=== PATIENT | male | born 1965 | race Caucasian/White ===

== ENCOUNTER 2018-07-15 14:34 | Emergency (ER) | payer MEDICARE, MEDICAID, SELFPAY ==
[2018-07-15 14:37] VITALS: PULSE 90; RESP 16; TEMP 36.5; O2SAT 97
[2018-07-15 14:44] VITALS: BP 138/95
[2018-07-15] MEDS: predniSONE 20 MG TAB 60 MG PO (15:27)
--- NOTE | 2018-07-15 16:16 | ED.GENADUL_ITS ---
Discharge Plan Disposition Patient Disposition: HOME Condition: Fair Discharge Details Chief Complaint: Orthopedic Clinical Impression: Gout Primary Care Provider: Jesi Montana ED Provider: Cynthia Fuentes Home Meds and New Rx's Prescriptions: New prednisone 20 mg tablet 60 mg PO DAILY Qty: 12 RF: 0 Continued prochlorperazine maleate 5 MG tablet 1 - 2 tab PO Q8H PRN Qty: 90 RF: 0 losartan-hydrochlorothiazide 1 EACH tablet 1 ea PO DAILY Qty: 90 RF: 3 gabapentin 300 MG capsule 300 mg PO PRN Qty: 90 RF: 4 colchicine 0.6 MG capsule 0.6 mg PO TID Qty: 9 RF: 0 prednisone 20 MG tablet 60 mg PO DAILY Qty: 15 RF: 0 ranitidine HCl 150 MG tablet 150 mg PO BID Qty: 180 RF: 3 phenytoin 50 mg tablet,chewable 50 mg PO DAILY Qty: 90 RF: 3 nortriptyline 75 mg capsule 75 mg PO DAILY Qty: 90 RF: 3 phenytoin sodium extended 100 mg capsule 200 mg PO HS Qty: 180 RF: 3 Discharge Instructions Instructions: Gout (ED) Additional Instructions: Encourage rest, ice, elevation. Postoperative shoe and crutches while pain persists. Steroids as prescribed, your first dose given here, you will not need another dose until tomorrow. If you develop increased redness, warmth, fevers/chills, increased pain or other new/worsening symptoms please seek care urgently once again. Follow up with primary care next week to discuss recurrent episodes of gout. Referrals: Jesi Montana, [facility] [Primary Care Provider] - Medical Decision Making Patient 53-year-old male presenting today with chief complaint of left great toe pain. He reports that this pain can radiate into the forefoot. Reports that symptoms began approximately 2 days ago. Associates this with eating pepperoni pizza. Reports that this feels like gout he has had previously. I did review previous notes, patient was last seen here in January for similar episode. He reports that this is the same type of pain. He denies any fevers or chills. Has a focal area of erythema at the base of the left great toe, this is consistent what with what was seen previously. No spreading of the erythema. Patient appears nontender. Vital signs within normal limits. Patient had an allergy to anti-inflammatories and acetaminophen. Patient responded well to prednisone last time is requesting the same medication. Patient longer has the crutches and postoperative shoe he was discharged with last time. Will replace these. Encourage rest, ice, elevation. Advised that he follow-up with primary care to discuss recurrent episodes of gout. We discussed new/worsening symptoms, and the signs and symptoms of infection, and when to seek care urgently once again. Patient did have colchicine listed on his medications but reports he has never been on this medication, is not clear as he works for. Advised to discuss this further with his primary care physician. All his questions and concerns were addressed and he is in agreement this plan HPI General Mode of arrival: ambulatory . Date/Time Provider Initiated Documentation: 07/15/18 14:39 . Limitations to Documentation: no limitations . Information obtained by: patient and family . History of Present Illness 53 year old M presents to the emergency department with the chief complaint of Left foot pain, described as severe, Quality is described as burning and stabbing, and is localized to the left and lower extremity. Patient reports no radiation. Patient started experiencing this day(s) (2) and it has been constant. No relieving factors improve symptom(s), Movement worsens symptoms and Other factors that worsen symptoms (Pressure applied to the left foot) . Patient notes no other symptoms.; denies chest pain, cough, diaphoresis, fever/chills, loss of appetite, nausea/vomiting, rash and shortness of breath. Patient did receive the following treatments prior to arrival, none Related Data Home Medications Medication Instructions Recorded Confirmed prochlorperazine maleate 1 - 2 tab PO Q8H PRN #90 tab-cap 06/14/17 losartan-hydrochlorothiazide 1 ea PO DAILY #90 tab 07/20/17 gabapentin 300 mg PO PRN #90 tab-cap 12/15/17 colchicine 0.6 mg PO TID #9 tab-cap 01/19/18 prednisone 60 mg PO DAILY #15 tab-cap 02/10/18 ranitidine HCl 150 mg PO BID #180 tab-cap 03/02/18 phenytoin 50 mg chewable tablet 50 mg PO DAILY #90 tab 03/08/18 nortriptyline 75 mg capsule 75 mg PO DAILY #90 tab-cap 04/07/18 phenytoin sodium extended 100 mg 200 mg PO HS #180 cap 05/31/18 capsule prednisone 60 mg PO DAILY #12 tab 07/15/18 Previous Rx's Medication Instructions Recorded prochlorperazine maleate 1 - 2 tab PO Q8H PRN #90 tab-cap 06/14/17 losartan-hydrochlorothiazide 1 ea PO DAILY #90 tab 07/20/17 gabapentin 300 mg PO PRN #90 tab-cap 12/15/17 colchicine 0.6 mg PO TID #9 tab-cap 01/19/18 prednisone 60 mg PO DAILY #15 tab-cap 02/10/18 ranitidine HCl 150 mg PO BID #180 tab-cap 03/02/18 phenytoin 50 mg chewable tablet 50 mg PO DAILY #90 tab 03/08/18 nortriptyline 75 mg capsule 75 mg PO DAILY #90 tab-cap 04/07/18 phenytoin sodium extended 100 mg 200 mg PO HS #180 cap 05/31/18 capsule prednisone 60 mg PO DAILY #12 tab 07/15/18 Allergies Allergy/AdvReac Type Severity Reaction Status Date / Time chocolate flavor Allergy Intermediate Hives Unverified 07/15/18 14:40 aspirin Allergy Mild SKIN RASH Unverified 07/15/18 14:40 OR GI UPSET fluoxetine Allergy Unknown Skin Rash Unverified 07/15/18 14:40 ibuprofen Allergy Unknown Skin Rash Unverified 07/15/18 14:40 acetaminophen Allergy SKIN RASH Unverified 07/15/18 14:40 lisinopril AdvReac Intermediate cough Unverified 07/15/18 14:40 Review of Systems Constitutional Reports as per HPI, Denies chills, Denies fever(s), Denies headache(s) and Denies weakness ENT Denies headache(s) Cardiovascular Reports as per HPI Respiratory Reports as per HPI and Denies cough Musculoskeletal Reports as per HPI and Denies tingling Integumentary/Breasts Reports as per HPI, Denies rash and Denies wounds Neurologic Denies headache(s), Denies tingling and Denies weakness [facility] Medical History Alcohol abuse (09/05/05) Aspirin allergy (08/10/07) Hyperlipidemia (04/05/09) IgA nephropathy (04/03/08) Impulse control disorder, unspecified (10/02/04) Left leg weakness (08/14/09) Obesity (04/01/09) PTSD (post-traumatic stress disorder) (10/02/04) Seizures (01/22/05) Shortness of breath (04/01/09) Surgical History Cholecystectomy (09/24/15) Circumcision kidney biopsy left (~2007) Family History Mother Substance abuse Essential hypertension Heart disease Mental disorder Father No problems noted. Maternal Aunt Diabetes Sister No problems noted. Sister No problems noted. Sister No problems noted. Sister No problems noted. Sister No problems noted. Brother No problems noted. Brother No problems noted. Brother No problems noted. Social History Smoking/Tobacco Use Status: Former Tobacco Use Exam Const General: cooperative, healthy appearing, comfortable, no acute distress, well developed and well groomed Nutritional Appearance: average body habitus and well nourished Orientation: alert and awake Resp Effort & Inspection: normal respiratory effort, able to speak in complete sentences and no respiratory distress Cardio Rate: regular rate Rhythm: regular rhythm Skin General skin exam: erythema (Proximal left great toe) Neuro General: alert and awake Cognition: normal cognition Speech: speech normal Gait: normal gait Motor: muscle tone normal throughout Sensory Exam: no sensory deficits noted Extrem Left lower extremity: normal capillary refill, lower leg Details: normal to inspection; no tenderness and no localized swelling, ankle Details: normal to inspection and no edema; no tenderness and no swelling and foot Details: normal capillary refill, tenderness Location: of the dorsal foot Location: distally and medially, no edema, vascular exam Details: dorsalis pedis pulse present, posterior tibial pulse present and normal capillary refill and motor-sensory exam Details: two point discrimination normal; ROM of toes abnormal (Limited range of motion great toe), no unusual warmth, no abrasions, no lacerations, no ecchymosis and no crepitus; abnormal ROM (Limited secondary to pain) and joint enlargement noted (Swelling at the base of the left great toe) Psych Appearance: grossly normal and well kempt Mental Status: mental status grossly normal Speech and Movement: speech and movement normal
== END 2018-07-15 15:32 | disposition home or self-care (01) ==
LOC: ER 15:15
PROVIDERS: Emergency Provider Physician Assistant; PCP Nurse Practitioner
DX: M10.072 Idiopathic gout, left ankle and foot (principal)
CPT/HCPCS: 99283; E0114; J7512

== ENCOUNTER 2018-07-29 13:53 | Emergency (ER) | payer MEDICARE, MEDICAID, SELFPAY ==
[2018-07-29 13:55] VITALS: BP 157/98; PULSE 90; RESP 18; TEMP 36.7; O2SAT 98
--- NOTE | 2018-07-29 14:41 | DI.RAD_ITS ---
SYMPTOMS/DIAGNOSIS: LEFT CHEST WALL PAIN LEFT RIBS TO INCLUDE CHEST X-RAY: Comparison is 09/26/15. The heart size and pulmonary vasculature are within normal limits. There are increased lung markings in the left base. These are present on prior examinations and likely reflect scarring. No new infiltrates, effusions or pneumothoraces are identified. The ribs appear intact. Mild degenerative changes are seen in the spine. IMPRESSION: No acute pulmonary process. No evidence of a rib fracture.
[2018-07-29 15:06] VITALS: BP 126/85; PULSE 81; RESP 16; TEMP 36.9; O2SAT 97
[2018-07-29] MEDS: oxyCODONE 5 MG TAB PO (15:09)
[2018-07-29] MEDS: Lidocaine 5% Patch 1 PATCH TP (15:09)
[2018-07-29 16:22] VITALS: BP 151/90; PULSE 60; RESP 16; TEMP 37.1; O2SAT 94
--- NOTE | 2018-07-29 16:24 | W.ED.GENAD ---
Discharge Plan Disposition Patient Disposition: HOME Condition: Stable Discharge Details Chief Complaint: Chest/Rib Clinical Impression: Contusion of left chest wall, Head injury due to trauma Reason For Visit: SARAH Primary Care Provider: Jesi Montana ED Provider: Bong Lewis Home Meds and New Rx's Prescriptions: New lidocaine HCl 3 % cream 1 applic TP BID PRN (Reason: pain) Qty: 28.3 RF: 0 oxycodone 5 mg tablet 5 mg PO Q6H PRN (Reason: pain) Qty: 6 RF: 0 Continued prochlorperazine maleate 5 MG tablet 1 - 2 tab PO Q8H PRN Qty: 90 RF: 0 gabapentin 300 MG capsule 300 mg PO PRN Qty: 90 RF: 4 colchicine 0.6 MG capsule 0.6 mg PO TID Qty: 9 RF: 0 prednisone 20 MG tablet 60 mg PO DAILY Qty: 15 RF: 0 ranitidine HCl 150 MG tablet 150 mg PO BID Qty: 180 RF: 3 phenytoin 50 mg tablet,chewable 50 mg PO DAILY Qty: 90 RF: 3 nortriptyline 75 mg capsule 75 mg PO DAILY Qty: 90 RF: 3 phenytoin sodium extended 100 mg capsule 200 mg PO HS Qty: 180 RF: 3 losartan-hydrochlorothiazide 50-12.5 mg tablet 1 tab PO DAILY Qty: 90 RF: 3 prednisone 20 mg tablet 60 mg PO DAILY Qty: 12 RF: 0 Discharge Instructions Instructions: Head Injury (ED), Contusion in Adults (ED) Additional Instructions: Return to the emergency department for any difficulty breathing, shortness of breath, fever chills, or any new or worsening symptoms. Otherwise follow-up with your primary care provider as needed for reassessment Referrals: Jesi Montana, [facility] [Primary Care Provider] - (As needed for reassessment or if not improving over the next 2 weeks) Discharge Data Discharge Date/Time-TO BE ENTERED AT DEPARTURE: 07/29/18 16:39 Medical Decision Making Patient presenting the emergency department via EMS for left-sided chest and shoulder pain after fall pain. Patient states he slipped on the ice and hit his head. After this he rolled on his left shoulder and noticed some some pain and discomfort there as well. Patient denies any shortness of breath, loss of consciousness, neurological symptoms. Head is atraumatic with no neurological symptoms or findings noted. No cervical spinal tenderness patient has full range of motion of C-spine. Given [place] head CT rule patient does not need to require head CT imaging but patient may be observed for any worsening symptoms. Given significant amount of pain and discomfort to left chest wall plan to perform radiological imaging but patient does have range of motion appropriate for left upper extremity. Concern for possible rib fracture. Lung sounds are clear so doubt pneumothorax. Pending results patient given lidocaine patch and oxycodone. Patient does have allergy to ibuprofen and acetaminophen. Review of radiological imaging shows no acute findings noted. Patient was reassessed and has continued discomfort and pain but otherwise is stable. Patient was discharged with prescription for lidocaine cream and limited supply of oxycodone after review of drug database shows no worrisome findings for narcotic abuse. Patient was informed to use these sparingly and to apply ice and rest. Patient informed to return for new or significant worsening symptoms otherwise follow-up with his primary care provider if not improving over the next couple weeks. HPI General Mode of arrival: EMS. Date/Time Provider Initiated Documentation: 07/29/18 14:00. Limitations to Documentation: no limitations. Information obtained by: patient, EMS and RN notes reviewed. History of Present Illness 53 year old M presents to the emergency department with the chief complaint of fall headache and left chest wall pain, described as severe, with intensity rated at 9. Quality is described as sharp, and is localized to the chest and left. Patient started experiencing this minute(s) (30) and it has been constant. No relieving factors improve symptom(s), Patient did receive the following treatments prior to arrival, none Related Data Home Medications Medication Instructions Recorded Confirmed prochlorperazine maleate 1 - 2 tab PO Q8H PRN #90 tab-cap 06/14/17 gabapentin 300 mg PO PRN #90 tab-cap 12/15/17 colchicine 0.6 mg PO TID #9 tab-cap 01/19/18 prednisone 60 mg PO DAILY #15 tab-cap 02/10/18 ranitidine HCl 150 mg PO BID #180 tab-cap 03/02/18 phenytoin 50 mg chewable tablet 50 mg PO DAILY #90 tab 03/08/18 nortriptyline 75 mg capsule 75 mg PO DAILY #90 tab-cap 04/07/18 phenytoin sodium extended 100 mg 200 mg PO HS #180 cap 05/31/18 capsule prednisone 60 mg PO DAILY #12 tab 07/15/18 lidocaine HCl 1 applic TP BID PRN #28.3 gm 07/29/18 losartan 50 mg-hydrochlorothiazide 1 tab PO DAILY #90 tab 07/29/18 12.5 mg tablet oxycodone 5 mg PO Q6H PRN #6 tab 07/29/18 Previous Rx's Medication Instructions Recorded prochlorperazine maleate 1 - 2 tab PO Q8H PRN #90 tab-cap 06/14/17 gabapentin 300 mg PO PRN #90 tab-cap 12/15/17 colchicine 0.6 mg PO TID #9 tab-cap 01/19/18 prednisone 60 mg PO DAILY #15 tab-cap 02/10/18 ranitidine HCl 150 mg PO BID #180 tab-cap 03/02/18 phenytoin 50 mg chewable tablet 50 mg PO DAILY #90 tab 03/08/18 nortriptyline 75 mg capsule 75 mg PO DAILY #90 tab-cap 04/07/18 phenytoin sodium extended 100 mg 200 mg PO HS #180 cap 05/31/18 capsule prednisone 60 mg PO DAILY #12 tab 07/15/18 lidocaine HCl 1 applic TP BID PRN #28.3 gm 07/29/18 losartan 50 mg-hydrochlorothiazide 1 tab PO DAILY #90 tab 07/29/18 12.5 mg tablet oxycodone 5 mg PO Q6H PRN #6 tab 07/29/18 Allergies Allergy/AdvReac Type Severity Reaction Status Date / Time chocolate flavor Allergy Intermediate Hives Unverified 07/29/18 14:05 aspirin Allergy Mild SKIN RASH Unverified 07/29/18 14:05 OR GI UPSET fluoxetine Allergy Unknown Skin Rash Unverified 07/29/18 14:05 ibuprofen Allergy Unknown Skin Rash Unverified 07/29/18 14:05 acetaminophen Allergy SKIN RASH Unverified 07/29/18 14:05 lisinopril AdvReac Intermediate cough Unverified 07/29/18 14:05 General Stated Complaint: Chest/Rib NITZA: 3 Review of Systems Constitutional Denies frequent falls, Reports headache(s), Denies lethargy and Denies weakness Eyes Denies blurry vision and Denies loss of vision ENT Reports headache(s) Cardiovascular Denies syncope Respiratory Denies hemoptysis, Reports pain on inspiration, Denies stridor and Denies wheezing Gastrointestinal Denies nausea and Denies vomiting Neurologic Denies syncope, Denies frequent falls, Reports headache(s), Denies focal weakness, Denies loss of vision, Denies memory loss, Denies seizure-like activity and Denies weakness Psychiatric Denies memory loss Allergic/Immunologic Denies wheezing [facility] Medical History Alcohol abuse (09/05/05) Aspirin allergy (08/10/07) Hyperlipidemia (04/05/09) IgA nephropathy (04/03/08) Impulse control disorder, unspecified (10/02/04) Left leg weakness (08/14/09) Obesity (04/01/09) PTSD (post-traumatic stress disorder) (10/02/04) Seizures (01/22/05) Shortness of breath (04/01/09) Surgical History Cholecystectomy (09/24/15) Circumcision kidney biopsy left (~2007) Family History Mother Substance abuse Essential hypertension Heart disease Mental disorder Father No problems noted. Maternal Aunt Diabetes Sister No problems noted. Sister No problems noted. Sister No problems noted. Sister No problems noted. Sister No problems noted. Brother No problems noted. Brother No problems noted. Brother No problems noted. Social History Smoking/Tobacco Use Status: Former Tobacco Use Exam Const General: cooperative, not diaphoretic and not ill appearing Nutritional Appearance: average body habitus Orientation: alert, awake and oriented x3 Limitations: mental status not altered [facility] Head: normal to inspection, no palpable skull fracture, normocephalic, atraumatic, no Nicole's sign, no palpable skull fracture, no raccoon eyes and no scalp tenderness Ears: hearing grossly normal bilaterally, external ears normal and TM's normal bilaterally General nose exam: external nose normal Neck Neck: normal visual inspection, full ROM, trachea midline, supple and no anterior neck swelling Thyroid: thyroid normal Carotids: normal carotid upstroke and no bruits Chest Chest: tenderness (difuse left chest wall) costochondral junction Resp Effort & Inspection: normal respiratory effort and able to speak in complete sentences Auscultation: clear to auscultation bilaterally Cardio Jugular venous pressure: no JVD Palpation: normal PMI Rate: regular rate Rhythm: regular rhythm Heart Sounds: S1 normal, S2 normal, no click, no gallops, no murmurs and no rubs Bruits: no abdominal aortic bruits and no carotid bruits Pulses: radial pulses present bilaterally 2+ GI Inspection: normal to inspection Palpation: soft, no aortic enlargement, no pulsatile masses and nontender Auscultation: normal bowel sounds Back/Spine/Pelvis Cervical Spine: cervical spinal tenderness Thoracic/Lumbar Spine: thoracic spinal tenderness and lumbar spinal tenderness Skin General skin exam: no rashes or lesions noted Neuro General: alert, awake, oriented x3, gait normal, tone normal, moves all extremities, no focal motor deficits, CN's II-XI intact bilaterally and not confused Course Vital Signs Temperature 36.7 C 07/29/18 13:55 Pulse 90 07/29/18 13:55 Respiratory Rate 18 07/29/18 13:55 Blood Pressure 157/98 H 07/29/18 13:55 Pulse Oximetry 98 07/29/18 13:55 Temperature 37.1 C 07/29/18 16:22 Temperature Source Skin 07/29/18 16:22 Pulse 60 07/29/18 16:22 Respiratory Rate 16 07/29/18 16:22 Respiratory Effort Non-Labored 07/29/18 13:58 Respiratory Depth Shallow 07/29/18 14:01 Blood Pressure 151/90 H 07/29/18 16:22 Blood Pressure Position Supine 07/29/18 13:55 Pulse Oximetry 94 L 07/29/18 16:22 Oxygen Delivery Method Room Air 07/29/18 16:22 Oxygen Flow Rate 0 07/29/18 16:22 Pain Level 9 07/29/18 16:22
[2018-07-29 16:33] VITALS: BP 151/90; PULSE 60; RESP 16; TEMP 37.1; O2SAT 94
== END 2018-07-29 16:39 | disposition home or self-care (01) ==
PROVIDERS: Emergency Provider Nurse Practitioner Family; PCP Nurse Practitioner
DX: S20.211A Contusion of right front wall of thorax, initial encounter (principal); S09.90XA Unspecified injury of head, initial encounter; W00.0XXA Fall on same level due to ice and snow, initial encounter
CPT/HCPCS: 99283; 71046; 71100

== ENCOUNTER 2018-08-09 15:10 | Emergency (ER) | payer MEDICARE, MEDICAID, SELFPAY ==
[2018-08-09 15:18] VITALS: BP 145/87; PULSE 88; RESP 16; TEMP 36.5
--- NOTE | 2018-08-09 15:28 | DI.RAD_ITS ---
SYMPTOMS/DIAGNOSIS: FALL, TRAUMA, LT ANTERIOR CHEST WALL PAIN LEFT SHOULDER: There is mild spurring at the AC joint and glenoid. The humeral head appears normally positioned. No fracture or lytic or blastic bony lesions are seen. No tendon or joint space calcifications are identified. IMPRESSION: Mild degenerative changes. PA AND LATERAL CHEST: Comparison is made with [id number]. The lungs are suboptimally inflated on both views. There are linear densities at the lung bases representing either atelectasis or scarring. No focal infiltrate, effusion or pulmonary edema is seen. Cholecystectomy clips are noted in the right upper quadrant. IMPRESSION: Mild linear basilar atelectasis vs scarring.
[2018-08-09] MEDS: MORPHine 10 MG/ML VIAL 6 MG IM (15:45)
[2018-08-09] MEDS: Lidocaine 5% Patch 1 PATCH TP (15:47)
--- NOTE | 2018-08-09 16:04 | ED.GENADUL_ITS ---
Discharge Plan Disposition Patient Disposition: HOME Condition: Stable Discharge Details Chief Complaint: Chest/Rib Clinical Impression: Contusion of left shoulder, Contusion of left chest wall Primary Care Provider: Jesi Montana ED Provider: Maximilian Perdomo Home Meds and New Rx's Prescriptions: New cyclobenzaprine 10 mg tablet 10 mg PO TID PRN (Reason: pain) Qty: 30 RF: 0 Continued prochlorperazine maleate 5 MG tablet 1 - 2 tab PO Q8H PRN Qty: 90 RF: 0 colchicine 0.6 MG capsule 0.6 mg PO TID Qty: 9 RF: 0 ranitidine HCl 150 MG tablet 150 mg PO BID Qty: 180 RF: 3 phenytoin 50 mg tablet,chewable 50 mg PO DAILY Qty: 90 RF: 3 nortriptyline 75 mg capsule 75 mg PO DAILY Qty: 90 RF: 3 phenytoin sodium extended 100 mg capsule 200 mg PO HS Qty: 180 RF: 3 losartan-hydrochlorothiazide 50-12.5 mg tablet 1 tab PO DAILY Qty: 90 RF: 3 lidocaine HCl 3 % cream 1 applic TP BID PRN (Reason: pain) Qty: 28.3 RF: 0 gabapentin 300 MG capsule 300 mg PO PRN Qty: 90 RF: 4 Discharge Instructions Additional Instructions: Your xrays did not show any broken bones Follow up with your primary care provider as scheduled this month if you have new symptoms such as chest pressure, abdominal pain or fevers, or feel significantly worse return to the emergency department for reevaluation Discharge Data Discharge Date/Time-TO BE ENTERED AT DEPARTURE: 08/09/18 17:13 Medical Decision Making <Bong Lewis NP - Last Filed: 08/11/18 19:51> Patient presenting the emergency department for chief complaint of continued chest wall pain and left shoulder pain. Patient states approximately 12 days ago he fell and slipped on the ice. I initially saw the patient at that time and radiological imaging of the chest wall/ribs was performed and no acute findings were noted. Patient placed on oxycodone and lidocaine patches which she states is not working. Patient denies any new or other injury or trauma but continued chest wall pain that is severe in the left shoulder pain. Physical exam shows diffuse tenderness to palpation of left anterior chest wall and left shoulder without pinpoint tenderness, over exaggerated pain response with even slight movement of the left upper extremity. High suspicion of this being contusion of left chest wall and shoulder. Patient has allergies to ibuprofen acetaminophen so patient given IM morphine and lidocaine patch ordered along with plain film imaging of the chest and shoulder to make sure there are no acute changes. Pending results patient transferred to Dr. Perdomo for review of results and disposition. HPI <Bong Lewis NP - Last Filed: 08/11/18 19:51> General Mode of arrival: ambulatory . Date/Time Provider Initiated Documentation: 08/09/18 15:13 . Limitations to Documentation: no limitations . Information obtained by: patient and RN notes reviewed . History of Present Illness 53 year old M presents to the emergency department with the chief complaint of Left chest wall pain, shoulder pain, described as severe, with intensity rated at 10. Quality is described as sharp, and is localized to the chest, left and upper extremity. Patient started experiencing this day(s) (12) and it has been constant. No relieving factors improve symptom(s), Movement worsens symptoms . Patient notes no other symptoms.. Patient did receive the following treatments prior to arrival, none Related Data Home Medications Medication Instructions Recorded Confirmed prochlorperazine maleate 1 - 2 tab PO Q8H PRN #90 tab-cap 06/14/17 08/09/18 colchicine 0.6 mg PO TID #9 tab-cap 01/19/18 08/09/18 ranitidine HCl 150 mg PO BID #180 tab-cap 03/02/18 08/09/18 phenytoin 50 mg chewable tablet 50 mg PO DAILY #90 tab 03/08/18 08/09/18 nortriptyline 75 mg capsule 75 mg PO DAILY #90 tab-cap 04/07/18 08/09/18 phenytoin sodium extended 100 mg 200 mg PO HS #180 cap 05/31/18 08/09/18 capsule lidocaine HCl 1 applic TP BID PRN #28.3 gm 07/29/18 08/09/18 losartan 50 mg-hydrochlorothiazide 1 tab PO DAILY #90 tab 07/29/18 08/09/18 12.5 mg tablet cyclobenzaprine 10 mg PO TID PRN #30 tab 08/09/18 gabapentin 300 mg PO PRN #90 tab-cap 08/09/18 Previous Rx's Medication Instructions Recorded prochlorperazine maleate 1 - 2 tab PO Q8H PRN #90 tab-cap 06/14/17 colchicine 0.6 mg PO TID #9 tab-cap 01/19/18 ranitidine HCl 150 mg PO BID #180 tab-cap 03/02/18 phenytoin 50 mg chewable tablet 50 mg PO DAILY #90 tab 03/08/18 nortriptyline 75 mg capsule 75 mg PO DAILY #90 tab-cap 04/07/18 phenytoin sodium extended 100 mg 200 mg PO HS #180 cap 05/31/18 capsule lidocaine HCl 1 applic TP BID PRN #28.3 gm 07/29/18 losartan 50 mg-hydrochlorothiazide 1 tab PO DAILY #90 tab 07/29/18 12.5 mg tablet cyclobenzaprine 10 mg PO TID PRN #30 tab 08/09/18 gabapentin 300 mg PO PRN #90 tab-cap 08/09/18 Allergies Allergy/AdvReac Type Severity Reaction Status Date / Time chocolate flavor Allergy Intermediate Hives Unverified 08/09/18 15:23 aspirin Allergy Mild SKIN RASH Unverified 08/09/18 15:23 OR GI UPSET fluoxetine Allergy Unknown Skin Rash Unverified 08/09/18 15:23 ibuprofen Allergy Unknown Skin Rash Unverified 08/09/18 15:23 acetaminophen Allergy SKIN RASH Unverified 08/09/18 15:23 lisinopril AdvReac Intermediate cough Unverified 08/09/18 15:23 General Stated Complaint: GenMedical NITZA: 3 Review of Systems <Bong Lewis NP - Last Filed: 08/11/18 19:51> Constitutional Denies chills, Denies daytime sleepiness and Denies fever(s) Eyes Denies loss of vision Cardiovascular Reports chest pain (wall pain) Respiratory Reports pain on inspiration Gastrointestinal Denies abdominal pain, Denies diarrhea, Denies nausea and Denies vomiting Musculoskeletal Reports as per HPI Neurologic Denies behavioral changes, Denies focal weakness and Denies loss of vision Psychiatric Denies behavioral changes PFSH <Bong Lewis NP - Last Filed: 08/11/18 19:51> Social History Smoking and Tabacco status: Former Tobacco Use Exam <Bong Lewis NP - Last Filed: 08/11/18 19:51> Const General: cooperative and no acute distress Orientation: alert, awake and oriented x3 HENMT Head: normal to inspection, normocephalic and atraumatic Chest Chest: normal inspection of the chest, no crepitus and other (Left anterior chest wall diffuse tenderness) Resp Effort & Inspection: normal respiratory effort and able to speak in complete sentences Auscultation: clear to auscultation bilaterally Cardio Rate: regular rate Rhythm: regular rhythm Heart Sounds: S1 normal, S2 normal, no click, no gallops, no murmurs and no rubs Back/Spine/Pelvis Thoracic/Lumbar Spine: No thoracic spinal tenderness Extrem Left upper extremity: shoulder/upper arm Details: tenderness Location: of the proximal humerus and over the subacromial bursa, axillary nerve sensory function normal and abnormal ROM Details: pain with active ROM (any movement); no ecchymosis and no deformity Course <Bong Lewis NP - Last Filed: 08/11/18 19:51> Vital Signs Temperature 36.5 C 08/09/18 15:18 Pulse 88 08/09/18 15:18 Respiratory Rate 16 08/09/18 15:18 Blood Pressure 145/87 H 08/09/18 15:18 Temperature 36.5 C 08/09/18 15:18 Temperature Source Skin 08/09/18 15:18 Pulse 88 08/09/18 15:18 Respiratory Rate 16 08/09/18 15:18 Respiratory Effort Non-Labored 08/09/18 15:18 Blood Pressure 145/87 H 08/09/18 15:18 Blood Pressure Position Sitting 08/09/18 15:18 Oxygen Delivery Method Room Air 08/09/18 15:18 Oxygen Flow Rate 0 08/09/18 15:18 Pain Level 10 08/09/18 15:45 Sign Out <Bong Lewis NP - Last Filed: 08/11/18 19:51> Sign Out Data: Sign Out Comment: Care of patient signed over to Dr. Perdomo pending review of radiological imaging and disposition for concern of chest wall contusion Last updated by Bong Lewis NP at 08/09/18 16:05 Post-Handoff Eval: xrays negative on my read. he states he slipped on ice in July and has continued left sided chest pain in mid axillary line and left shoulder pain. No erythema, crepitus, warmth and has good rom of the shoulder so doubt septic joint. Does have some djd of the joint which could be causing his pain. HAs reproducible pain in the left chest and started after the fall so do not feel w/u for acs, pe or dissection indciated. Advised f/u with pcp and return precautions given
--- NOTE | 2018-08-09 16:38 | DI.VRAD_ITS ---
EXAM: XR Left Shoulder Complete, 2 or More Views EXAM DATE/TIME: 08/09/2018 3:29 PM CLINICAL HISTORY: 53 years old, male; Pain; Shoulder; Left TECHNIQUE: XR Left shoulder complete 2 or more views. COMPARISON: No relevant prior studies available. FINDINGS: There is mild degenerative arthrosis of the left acromioclavicular joint. Glenohumeral joint is unremarkable. No fracture or dislocation is identified. The left shoulder soft tissues are unremarkable. IMPRESSION: Mild osteoarthritis of the left acromioclavicular joint. Dictated and Authenticated by: Moise Mayers MD. Ordering:VLAD Woody MD
--- NOTE | 2018-08-09 16:39 | DI.VRAD_ITS ---
EXAM: XR Chest, 2 Views EXAM DATE/TIME: 08/09/2018 3:29 PM CLINICAL HISTORY: 53 years old, male; Pain; Chest wall pain; Patient HX: Left anterior chest wall pain TECHNIQUE: XR of the chest, 2 views. COMPARISON: CR XR ribs LT w PA lat chest 07/29/2018 3:06 PM FINDINGS: There is minimal linear atelectasis and/or scarring lung bases. No pulmonary consolidation. No pleural effusion or pneumothorax. The cardiomediastinal silhouette and pulmonary vasculature are within normal limits. No rib fracture or focal rib lesion is seen. The patient is status post cholecystectomy. IMPRESSION: Minimal linear atelectasis and/or scarring the lung bases. Dictated and Authenticated by: Moise Mayers MD. Ordering:VLAD Woody MD
== END 2018-08-09 17:13 | disposition home or self-care (01) ==
PROVIDERS: Emergency Provider Emergency Medicine; PCP Nurse Practitioner
DX: S40.012A Contusion of left shoulder, initial encounter (principal); S20.212A Contusion of left front wall of thorax, initial encounter; W00.0XXA Fall on same level due to ice and snow, initial encounter; R29.898 Other symptoms and signs involving the musculoskeletal system
CPT/HCPCS: 96372; 99284; 71046; 73030; J2270

== ENCOUNTER 2018-08-29 00:31 | Outpatient (CLI) | payer MEDICARE, MEDICAID, SELFPAY ==
--- NOTE | 2018-08-29 14:13 | DI.CT_ITS ---
SYMPTOM/DIAGNOSIS: CONTINUED PAIN, S/P FALL, R07.9, W19.XXXA CHEST CT: Comparison is made with chest xray dated 08/09/18. A noncontrast exam was performed. The exam is limited by respiratory motion. There is no evidence of pneumothorax, pleural or pericardial effusion. No infiltrates are seen. No pulmonary nodules or adenopathy is identified. There are nondisplaced subacute fractures of the left fifth, sixth and seventh ribs posterolaterally and fractures anterolateral. No right sided rib fractures or thoracic spine fractures are seen. The visualized portions of the upper abdominal organs appear intact. IMPRESSION: The exam is mildly limited by patient motion. Left sided sub acute rib fractures are identified. There is no evidence of pneumothorax or pulmonary contusion.
[2018-08-29 14:59] LABS: HCT 41.6 % (40.0-50.0); HGB 14.2 g/dL (13.5-17.5); Mean Corp. HGB Concentration 34.1 g/dL (32.0-36.0); Mean Corpuscular Hemoglobin 31.3 pg (27.0-33.0); Mean Corpuscular Volume 91.6 fL (80-95); Mean Platelet Volume 8.7 fL (8.0-11.0); Platelet Count 268 x1000/uL (130-400); RBC 4.54 m/cumm (4.50-6.00); RBC Distribution Width 13.4 % (11.8-14.1); White Blood Cell Count 7.58 k/cumm (4.4-10.8)
[2018-08-29 15:03] LABS: Bilirubin Negative (Negative); Blood Moderate (Negative); Clarity Clear; Glucose Negative (Negative); Ketones Negative (Negative); Leukocyte Esterase Negative (Negative); Nitrite Negative (Negative); Specific Gravity 1.015 (1.005-1.025); Urobilinogen 0.2 EU/dL (Up TO 0.2)
[2018-08-29 15:17] LABS: Epithelial Cells Few HPF (Negative); WBC 0-2 HPF (0-5)
[2018-08-29 15:18] LABS: Bacteria Rare HPF (Negative); C & S Indicated? No; Casts Negative LPF (Negative); Crystals Negative HPF (Negative); Mucus Trace (Negative)
[2018-08-29 15:44] LABS: PHENYTOIN (DILANTIN) 11.1 ug/mL (10.0-20.0)
[2018-08-29 16:19] LABS: ALT 23 U/L (12-78); AST 15 U/L (15-37); Albumin 3.6 g/dL (3.4-5.0); Alkaline Phosphatase 154 U/L (46-116); Anion Gap 6.5 mmol/L (3-11); BUN 23 mg/dL (7-18); Bilirubin, Total 0.3 mg/dL (0.2-1.0); CO2 29.5 mmol/L (21.0-32.0); CREATININE 1.58 mg/dL (0.70-1.30); Calcium 9.2 mg/dL (8.5-10.1); Chloride 104 mmol/L (98-107); Cholesterol 275 mg/dL (50-200); Estimated GFR 46.29 (mL/min/1.73m2); Glucose 88 mg/dL (70-100); HDL Cholesterol 53 mg/dL (40-60); LDL CHOLESTEROL 173 mg/dL (<100); Potassium 4.5 mmol/L (3.5-5.1); Sodium 140 mmol/L (136-145); Total Protein 7.7 g/dL (6.4-8.2); Triglyceride 220 mg/dL (30-150)
== END 2018-08-29 00:51 ==
PROVIDERS: PCP Nurse Practitioner; Visit Provider Nurse Practitioner
DX: R07.9 Chest pain, unspecified (principal); S22.42XA Multiple fractures of ribs, left side, initial encounter for closed fracture; E78.5 Hyperlipidemia, unspecified; I12.9 Hypertensive chronic kidney disease with stage 1 through stage 4 chronic kidney disease, or unspecified chronic kidney disease; G40.909 Epilepsy, unspecified, not intractable, without status epilepticus; Z51.81 Encounter for therapeutic drug level monitoring; E66.9 Obesity, unspecified; W19.XXXA Unspecified fall, initial encounter
CPT/HCPCS: 36415; 71250; 80053; 80061; 83721; 85027; 80185; 81003; 81015

== ENCOUNTER 2018-12-06 12:44 | Outpatient (CLI) | payer MEDICARE, MEDICAID, SELFPAY ==
[2018-12-06 14:22] LABS: ALT 34 U/L (12-78); AST 19 U/L (15-37); Albumin 3.5 g/dL (3.4-5.0); Alkaline Phosphatase 117 U/L (46-116); Anion Gap 9.9 mmol/L (3-11); BUN 21 mg/dL (7-18); Bilirubin, Total 0.2 mg/dL (0.2-1.0); CO2 27.1 mmol/L (21.0-32.0); CREATININE 1.36 mg/dL (0.70-1.30); Calculated LDL 102; Chloride 104 mmol/L (98-107); Cholesterol 177 mg/dL (50-200); Estimated GFR 55.03 (mL/min/1.73m2); Glucose 89 mg/dL (70-100); HDL Cholesterol 52 mg/dL (40-60); Potassium 4.2 mmol/L (3.5-5.1); Sodium 141 mmol/L (136-145); Total Protein 7.3 g/dL (6.4-8.2); Triglyceride 119 mg/dL (30-150)
== END 2018-12-06 13:04 ==
PROVIDERS: PCP Nurse Practitioner; Visit Provider Nurse Practitioner
DX: E78.5 Hyperlipidemia, unspecified (principal)
CPT/HCPCS: 36415; 80053; 80061; 83721

== ENCOUNTER 2019-02-14 09:01 | Emergency (ER) | payer MEDICARE, MEDICAID, SELFPAY ==
[2019-02-14 09:14] VITALS: BP 131/83; PULSE 82; RESP 16; TEMP 36.6; O2SAT 92
--- NOTE | 2019-02-14 09:27 | W.ED.GENAD ---
Discharge Plan Disposition Patient Disposition: HOME Condition: Stable Discharge Details Chief Complaint: Orthopedic Clinical Impression: Plantar fasciitis of left foot Primary Care Provider: Jesi Montana ED Provider: Maximilian Perdomo Home Meds and New Rx's Prescriptions: New gabapentin 100 mg capsule 100 mg PO TID Qty: 30 RF: 0 lidocaine 5 % adhesive patch,medicated 1 patch TP DAILY Qty: 30 RF: 0 No Action atorvastatin 20 mg tablet 20 mg PO QHS Qty: 90 RF: 3 losartan-hydrochlorothiazide 50-12.5 mg tablet 2 tab PO DAILY Qty: 180 RF: 3 ranitidine HCl 150 MG tablet 150 mg PO BID Qty: 180 RF: 3 phenytoin 50 mg tablet,chewable 50 mg PO DAILY Qty: 90 RF: 3 nortriptyline 75 mg capsule 75 mg PO DAILY Qty: 90 RF: 3 phenytoin sodium extended 100 mg capsule 200 mg PO HS Qty: 180 RF: 3 gabapentin 300 mg capsule 600 mg PO BID Qty: 120 RF: 6 Discharge Instructions Instructions: Plantar Fasciitis Exercises (GEN), Plantar Fasciitis (ED) Additional Instructions: follow up with your primary care provider within 1-2 weeks if you have new symptoms such as fevers or feel more ill return to the emergency department Medical Decision Making 54 yo male comes in with chief complaint of left heal pain since yesterday and denies any trauma or falls. no fevers, chills, or rashes. He has full rom of the ankle without swelling and pain pain with palpation under the left calcaneus and also the posterior portion. no warmth, ertyehma, or swelling. Suspect fascitis but will xray to eval for possible bone abnormalities such as spurs xray does have evidence of acute/chronic inflmmatory changes of distal achilles tendon per Dr. Haynes which would fit with fascititis. Still no redness or warmth so doubt cellulitis or nec fasc. Will prescribe lidocaine patch and given nsaid allergy will also start gabapentin, advised f/u with pcp Differential Diagnosis plantar fascitis, bursitis Imaging Data Radiologic Study: Attestation: I personally reviewed and interpreted this imaging study as follows: Imaging: X-Ray Radiologist's impression: per Dr. Haynes no acute fx/dislocation but does have some inflammation around the achilles tendon distally HPI General Mode of arrival: ambulatory. Date/Time Provider Initiated Documentation: 02/14/19 09:06. Limitations to Documentation: no limitations. Information obtained by: patient. History of Present Illness 54 year old M presents to the emergency department with the chief complaint of left heal pain, described as moderate, Quality is described as aching, and is localized to the left and lower extremity. Patient started experiencing this day(s) (1) and it has been constant. No relieving factors improve symptom(s), No exacerbating factors reported . Patient did receive the following treatments prior to arrival, none Related Data Home Medications Medication Instructions Recorded Confirmed ranitidine HCl 150 mg PO BID #180 tab-cap 03/02/18 12/06/18 phenytoin 50 mg chewable tablet 50 mg PO DAILY #90 tab 03/08/18 12/06/18 nortriptyline 75 mg capsule 75 mg PO DAILY #90 tab-cap 04/07/18 12/06/18 phenytoin sodium extended 100 mg 200 mg PO HS #180 cap 05/31/18 12/06/18 capsule atorvastatin 20 mg tablet 20 mg PO QHS #90 tab 09/05/18 12/06/18 gabapentin 300 mg capsule 600 mg PO BID #120 tab-cap 11/29/18 12/06/18 losartan 50 mg-hydrochlorothiazide 2 tab PO DAILY #180 tab 01/17/19 01/17/19 12.5 mg tablet gabapentin 100 mg PO TID #30 cap 02/14/19 lidocaine 1 patch TP DAILY #30 each 02/14/19 Previous Rx's Medication Instructions Recorded ranitidine HCl 150 mg PO BID #180 tab-cap 03/02/18 phenytoin 50 mg chewable tablet 50 mg PO DAILY #90 tab 03/08/18 nortriptyline 75 mg capsule 75 mg PO DAILY #90 tab-cap 04/07/18 phenytoin sodium extended 100 mg 200 mg PO HS #180 cap 05/31/18 capsule atorvastatin 20 mg tablet 20 mg PO QHS #90 tab 09/05/18 gabapentin 300 mg capsule 600 mg PO BID #120 tab-cap 11/29/18 losartan 50 mg-hydrochlorothiazide 2 tab PO DAILY #180 tab 01/17/19 12.5 mg tablet gabapentin 100 mg PO TID #30 cap 02/14/19 lidocaine 1 patch TP DAILY #30 each 02/14/19 Allergies Allergy/AdvReac Type Severity Reaction Status Date / Time chocolate flavor Allergy Intermediate Hives Verified 01/17/19 13:43 aspirin Allergy Mild SKIN RASH Verified 01/17/19 13:43 OR GI UPSET fluoxetine Allergy Unknown Skin Rash Verified 01/17/19 13:43 ibuprofen Allergy Unknown Skin Rash Verified 01/17/19 13:43 acetaminophen Allergy SKIN RASH Verified 01/17/19 13:43 Opioids - Morphine Analogues AdvReac Severe vomiting Verified 01/17/19 13:43 lisinopril AdvReac Intermediate cough Verified 01/17/19 13:43 General Stated Complaint: Orthopedic NITZA: 4 Review of Systems Review of Systems All systems reviewed & are unremarkable except as noted in HPI and below Constitutional Denies chills, Denies fever(s) and Denies weakness Cardiovascular Denies chest pain and Denies dyspnea Respiratory Denies cough and Denies dyspnea Gastrointestinal Denies abdominal pain, Denies nausea and Denies vomiting Neurologic Denies weakness [facility] Medical History (Updated 01/17/19 @ 13:50 by Jesi Montana NP) Alcohol abuse (09/05/05) Aspirin allergy (08/10/07) Hyperlipidemia (04/05/09) Hypertension (Chronic) IgA nephropathy (04/03/08) Impulse control disorder, unspecified (10/02/04) Left leg weakness (08/14/09) Obesity (04/01/09) PTSD (post-traumatic stress disorder) (10/02/04) Seizures (01/22/05) Shortness of breath (04/01/09) Surgical History Cholecystectomy (09/24/15) Circumcision kidney biopsy left (~2007) Social History (Updated 08/15/18 @ 13:37 by Dayanara Tobin RN) Smoking/Tobacco Use Status: Former Tobacco Use Second Hand Exposure: Yes (girlfriend smokes indoors.) Alcohol Intake: never Drug use: Never Substance use type: does not use Household members: significant other Housing: apartment Pets and animals: Yes (3 cats) Pets and animals: cat(s) Seatbelt use: always Working smoke detector in home: Yes Fire extinguisher in home: Yes Carbon monox detector in home: Yes Firearms in home: No Do you feel safe at home: Yes Do you feel safe in your relationship?: Yes Exam Const General: no acute distress Orientation: alert [facility] Head: normal to inspection Ears: external ears normal General nose exam: external nose normal Mouth: moist mucous membranes Eyes General: appearance normal, both eyes and all related structures Neck Neck: normal visual inspection Resp Effort & Inspection: normal respiratory effort and able to speak in complete sentences Cardio Rate: regular rate Skin General skin exam: no rashes or lesions noted Neuro General: alert and oriented x3 Extrem General: normal to inspection Psych Mental Status: mental status grossly normal Course Vital Signs Temperature 36.6 C 02/14/19 09:14 Pulse 82 02/14/19 09:14 Respiratory Rate 16 02/14/19 09:14 Blood Pressure 131/83 02/14/19 09:14 Pulse Oximetry 92 L 02/14/19 09:14 Temperature 36.6 C 02/14/19 09:14 Temperature Source Skin 02/14/19 09:14 Pulse 82 02/14/19 09:14 Respiratory Rate 16 02/14/19 09:14 Blood Pressure 131/83 02/14/19 09:14 Blood Pressure Position Sitting 02/14/19 09:14 Pulse Oximetry 92 L 02/14/19 09:14 Oxygen Delivery Method Room Air 02/14/19 09:14 Oxygen Flow Rate 0 02/14/19 09:14 Pain Level 10 02/14/19 09:14
--- NOTE | 2019-02-14 09:56 | DI.RAD_ITS ---
SYMPTOM/DIAGNOSIS: LEFT CALCANEUS PAIN LEFT ANKLE: 02/14 Three views were obtained. There is calcific or ossific material in the soft tissues adjacent to Achilles insertion on the calcaneus. No other bony or soft tissue abnormality seen.
[2019-02-14] MEDS: Lidocaine 5% Patch 1 PATCH TP (10:00)
[2019-02-14 10:39] VITALS: BP 131/83; PULSE 82; RESP 16; TEMP 36.6; O2SAT 96
== END 2019-02-14 10:24 | disposition home or self-care (01) ==
LOC: ER 10:16
PROVIDERS: Emergency Provider Emergency Medicine; PCP Nurse Practitioner
DX: M72.2 Plantar fascial fibromatosis (principal); I10 Essential (primary) hypertension
CPT/HCPCS: 99283; 73610; E0114

== ENCOUNTER → 2019-04-10 12:55 | Outpatient (BNVA) | payer MEDICARE, MEDICAID, SELFPAY | PROVIDERS: PCP Nurse Practitioner; Referring Provider Nurse Practitioner; Visit Provider Psychiatry & Neurology Neurology | DX: G40.109 Localization-related (focal) (partial) symptomatic epilepsy and epileptic syndromes with simple partial seizures, not intractable, without status epilepticus (principal); M24.822 Other specific joint derangements of left elbow, not elsewhere classified; M79.605 Pain in left leg; I12.9 Hypertensive chronic kidney disease with stage 1 through stage 4 chronic kidney disease, or unspecified chronic kidney disease; N18.9 Chronic kidney disease, unspecified | CPT/HCPCS: 99214 ==

== ENCOUNTER 2019-04-27 13:46 | Emergency (ER) | payer MEDICARE, MEDICAID, SELFPAY ==
[2019-04-27 13:48] VITALS: BP 117/87; PULSE 86; RESP 18; TEMP 36.7; O2SAT 96
--- NOTE | 2019-04-27 13:58 | ED.GENADUL_ITS ---
Discharge Plan Disposition Patient Disposition: HOME Condition: Stable Discharge Details Chief Complaint: RespSymp Clinical Impression: Cough Primary Care Provider: Jesi Montana ED Provider: Maximilian Perdomo Home Meds and New Rx's Prescriptions: New doxycycline hyclate 100 mg tablet 100 mg PO BID Qty: 14 RF: 0 Continued atorvastatin 20 mg tablet 20 mg PO QHS Qty: 90 RF: 3 phenytoin sodium extended 100 mg capsule 200 mg PO HS Qty: 180 RF: 3 phenytoin 50 mg tablet,chewable 50 mg PO DAILY Qty: 90 RF: 3 losartan-hydrochlorothiazide 50-12.5 mg tablet 2 tab PO DAILY Qty: 180 RF: 3 gabapentin 300 mg capsule 600 mg PO BID Qty: 120 RF: 6 ranitidine HCl 150 mg tablet 150 mg PO BID Qty: 180 RF: 3 nortriptyline 75 mg capsule 75 mg PO DAILY Qty: 90 RF: 3 Discharge Instructions Instructions: Acute Cough (ED) Additional Instructions: if not better within a week follow up with your primary care provider if you feel more ill or have worsening shortness of breath return to the emergency department Medical Decision Making 54 yo male comes in with 3 days of productive cough with no fevers. Sttaes the cough is preventing him from sleeping. He denies chest pain/pressure, recent travel or chills. He has clear lungs on exam and appears well systemically. Suspect bronchitis vs uri but will obtian cxr to eval for pna. His symptoms seem infectious and has no chest pain/pressure so doubt entities such as acs or PE at this time. xray unremarkable on my read but given his symptoms will cover for early CAp with doxy. advised f/u with pcp and return precautions given Differential Diagnosis Differential Diagnosis: bronchitis, pneumonia, uri Imaging Data Radiologic Study: Attestation: I personally reviewed and interpreted this imaging study as follows: Imaging: X-Ray My impression: no acute findings HPI General Mode of arrival: ambulatory . Date/Time Provider Initiated Documentation: 04/27/19 13:47 . Limitations to Documentation: no limitations . Information obtained by: patient . History of Present Illness 54 year old M presents to the emergency department with the chief complaint of cough, described as moderate, Quality is described as aching, Patient started experiencing this day(s) (3) and it has been constant. No relieving factors improve symptom(s), No exacerbating factors reported . Patient did receive the following treatments prior to arrival, none Related Data Home Medications Medication Instructions Recorded Confirmed atorvastatin 20 mg tablet 20 mg PO QHS #90 tab 09/05/18 04/27/19 gabapentin 300 mg capsule 600 mg PO BID #120 tab-cap 11/29/18 04/27/19 losartan 50 mg-hydrochlorothiazide 2 tab PO DAILY #180 tab 01/17/19 04/27/19 12.5 mg tablet ranitidine HCl 150 mg tablet 150 mg PO BID #180 tab-cap 03/03/19 04/27/19 nortriptyline 75 mg capsule 75 mg PO DAILY #90 tab-cap 04/03/19 04/27/19 phenytoin 50 mg chewable tablet 50 mg PO DAILY #90 tab 04/10/19 04/27/19 phenytoin sodium extended 100 mg 200 mg PO HS #180 cap 04/10/19 04/27/19 capsule doxycycline hyclate 100 mg PO BID #14 tab 04/27/19 Previous Rx's Medication Instructions Recorded atorvastatin 20 mg tablet 20 mg PO QHS #90 tab 09/05/18 gabapentin 300 mg capsule 600 mg PO BID #120 tab-cap 11/29/18 losartan 50 mg-hydrochlorothiazide 2 tab PO DAILY #180 tab 01/17/19 12.5 mg tablet ranitidine HCl 150 mg tablet 150 mg PO BID #180 tab-cap 03/03/19 nortriptyline 75 mg capsule 75 mg PO DAILY #90 tab-cap 04/03/19 phenytoin 50 mg chewable tablet 50 mg PO DAILY #90 tab 04/10/19 phenytoin sodium extended 100 mg 200 mg PO HS #180 cap 04/10/19 capsule doxycycline hyclate 100 mg PO BID #14 tab 04/27/19 Allergies Allergy/AdvReac Type Severity Reaction Status Date / Time chocolate flavor Allergy Intermediate Hives Verified 04/27/19 13:54 aspirin Allergy Mild SKIN RASH Verified 04/27/19 13:54 OR GI UPSET fluoxetine Allergy Unknown Skin Rash Verified 04/27/19 13:54 ibuprofen Allergy Unknown Skin Rash Verified 04/27/19 13:54 acetaminophen Allergy SKIN RASH Verified 04/27/19 13:54 Opioids - Morphine Analogues AdvReac Severe vomiting Verified 04/27/19 13:54 lisinopril AdvReac Intermediate cough Verified 04/27/19 13:54 morphine AdvReac Nausea Unverified 04/27/19 13:54 General Stated Complaint: RespSymp NITZA: 4 Review of Systems All systems reviewed & are unremarkable except as noted in HPI and below Constitutional Constitutional: Denies chills and Denies fever(s) Cardiovascular Cardiovascular: Denies chest pain and Denies dyspnea Respiratory Respiratory: Denies dyspnea Gastrointestinal Gastrointestinal: Denies abdominal pain, Denies nausea and Denies vomiting Musculoskeletal Musculoskeletal: Denies joint swelling Integumentary/Breasts Skin/Breast: Denies rash [facility] Social History Smoking/Tobacco Use Status: Former Tobacco Use Second Hand Exposure: Yes (girlfriend smokes indoors.) Alcohol Intake: never Drug use: Never Substance use type: does not use Household members: significant other Housing: apartment 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 Pets and animals: Yes (3 cats) Pets and animals: cat(s) What is your relationship status?: Panel score (0-1 are the most socially isolated patients): 0 Seatbelt use: always Working smoke detector in home: Yes Fire extinguisher in home: Yes Carbon monox detector in home: Yes Firearms in home: No Do you feel safe at home: Yes Do you feel safe in your relationship?: Yes Exam Const General: no acute distress Orientation: alert HENID Head: normal to inspection Ears: external ears normal General nose exam: external nose normal Mouth: moist mucous membranes Eyes General: appearance normal, both eyes and all related structures Neck Neck: normal visual inspection Resp Effort & Inspection: normal respiratory effort and able to speak in complete sentences Cardio Rate: regular rate Skin General skin exam: no rashes or lesions noted Neuro General: alert and oriented x3 Extrem General: normal to inspection Psych Mental Status: mental status grossly normal Course Vital Signs Vital signs: Vital Signs Temperature 36.7 C 04/27/19 13:48 Pulse 86 04/27/19 13:48 Respiratory Rate 18 04/27/19 13:48 Blood Pressure 117/87 04/27/19 13:48 Pulse Oximetry 96 04/27/19 13:48 Temperature 36.7 C 04/27/19 13:48 Temperature Source Temporal Artery Scan 04/27/19 13:48 Pulse 86 04/27/19 13:48 Respiratory Rate 18 04/27/19 13:48 Respiratory Effort Non-Labored 04/27/19 13:48 Blood Pressure 117/87 04/27/19 13:48 Blood Pressure Position Supine 04/27/19 13:48 Pulse Oximetry 96 04/27/19 13:48 Oxygen Delivery Method Room Air 04/27/19 13:48 Oxygen Flow Rate 0 04/27/19 13:48 Pain Level 0 04/27/19 13:48
--- NOTE | 2019-04-27 14:16 | DI.RAD_ITS ---
EXAM: XR CHEST 2V PA LATERAL CLINICAL HISTORY: cough TECHNIQUE: COMPARISON: CHEST 2 VIEWS PA,LAT from 09/25/2015 XR shoulder LT complete 2+V from 08/09/2018 XR CHEST 2V PA LATERAL from 08/09/2018 FINDINGS: The heart is not enlarged. Lungs are clear. Slight prominence of the central pulmonary arteries not ed, unchanged from prior examinations. No pleural effusion. No focal consolidation. IMPRESSION: No evidence of acute process.
== END 2019-04-27 14:32 | disposition home or self-care (01) ==
PROVIDERS: Emergency Provider Emergency Medicine; PCP Nurse Practitioner
DX: R05 Cough (principal); I12.9 Hypertensive chronic kidney disease with stage 1 through stage 4 chronic kidney disease, or unspecified chronic kidney disease; N18.9 Chronic kidney disease, unspecified; Z87.891 Personal history of nicotine dependence
CPT/HCPCS: 99283; 71046

== ENCOUNTER → 2020-05-01 14:12 | Outpatient (BNVA) | payer OTHER, MEDICAID, SELFPAY | PROVIDERS: PCP Nurse Practitioner; Referring Provider Nurse Practitioner; Visit Provider Psychiatry & Neurology Neurology | DX: G40.109 Localization-related (focal) (partial) symptomatic epilepsy and epileptic syndromes with simple partial seizures, not intractable, without status epilepticus (principal); M79.605 Pain in left leg; I10 Essential (primary) hypertension | CPT/HCPCS: 99214 ==

== ENCOUNTER 2020-07-19 02:39 | Outpatient (CLI) | payer OTHER, MEDICAID, SELFPAY ==
[2020-07-19 15:16] LABS: PHENYTOIN (DILANTIN) 11.9 ug/mL (10.0-20.0)
[2020-07-19 15:21] LABS: ALT 35 U/L (16-63); AST 21 U/L (15-37); Albumin 3.8 g/dL (3.4-5.0); Alkaline Phosphatase 118 U/L (46-116); Anion Gap 8.8 mmol/L (3-11); BUN 34 mg/dL (7-18); Bilirubin, Total 0.3 mg/dL (0.2-1.0); CO2 28.2 mmol/L (21.0-32.0); Calcium 9.2 mg/dL (8.5-10.1); Calculated LDL 87 mg/dL (<100); Chloride 102 mmol/L (98-107); Cholesterol 164 mg/dL (<200); Estimated GFR 39.52 (mL/min/1.73m2); Glucose 109 mg/dL (74-106); HDL Cholesterol 51 mg/dL (40-60); Potassium 4.1 mmol/L (3.5-5.1); Sodium 139 mmol/L (136-145); TSH (W/Ref FT4) 3.34 uIU/mL (0.36-3.74); Total Protein 7.8 g/dL (6.4-8.2); Triglyceride 134 mg/dL (<150)
== END 2020-07-19 02:59 ==
PROVIDERS: Psychiatry & Neurology Neurology; PCP Nurse Practitioner; Visit Provider Nurse Practitioner
DX: I10 Essential (primary) hypertension (principal); E78.5 Hyperlipidemia, unspecified; N18.9 Chronic kidney disease, unspecified; R63.5 Abnormal weight gain; R53.83 Other fatigue; G40.109 Localization-related (focal) (partial) symptomatic epilepsy and epileptic syndromes with simple partial seizures, not intractable, without status epilepticus; Z51.81 Encounter for therapeutic drug level monitoring; E66.9 Obesity, unspecified
CPT/HCPCS: 36415; 80053; 80061; 80185; 84443

== ENCOUNTER → 2021-04-30 10:11 | Outpatient (BNVA) | payer MEDICARE, MEDICAID, SELFPAY | PROVIDERS: PCP Nurse Practitioner; Referring Provider Nurse Practitioner; Visit Provider Psychiatry & Neurology Neurology | DX: G40.109 Localization-related (focal) (partial) symptomatic epilepsy and epileptic syndromes with simple partial seizures, not intractable, without status epilepticus (principal); M79.605 Pain in left leg | CPT/HCPCS: 99442 ==

== ENCOUNTER 2021-07-10 04:31 | Outpatient (CLI) | payer MEDICARE, MEDICAID, SELFPAY | END 2021-07-10 04:32 | disposition home or self-care (01) | PROVIDERS: PCP Nurse Practitioner; Visit Provider Dietitian, Registered ==

== ENCOUNTER 2021-10-02 14:14 | Outpatient (REF) | payer OTHER, MEDICAID, SELFPAY ==
[2021-10-02 18:17] LABS: HCT 42.2 % (40.0-50.0); HGB 14.4 g/dL (13.5-17.5); MCH 31.5 pg (27.0-33.0); MCHC 34.1 % (32.0-36.0); MCV 92.3 fL (80-95); MPV 9.5 fL (8.0-11.0); Platelet Count 300 10^3/uL (130-400); RBC 4.57 10^6/uL (4.36-5.78); RDW 13.4 % (11.8-14.1); RDW-SD 45.5 fL; WBC 8.89 10^3/uL (4.4-10.8)
[2021-10-02 18:30] LABS: ALT 29 U/L (16-63); AST 22 U/L (15-37); Albumin 3.9 g/dL (3.4-5.0); Alkaline Phosphatase 138 U/L (46-116); Anion Gap 6.3 mmol/L (3-11); BUN 28 mg/dL (7-18); Bilirubin, Total 0.3 mg/dL (0.2-1.0); CO2 26.7 mmol/L (21.0-32.0); CREATININE 1.5 mg/dL (0.70-1.30); Calcium 9.2 mg/dL (8.5-10.1); Calculated LDL 89 mg/dL (<100); Chloride 101 mmol/L (98-107); Cholesterol 163 mg/dL (<200); Estimated GFR 48.59 (mL/min/1.73m2); Glucose 97 mg/dL (74-106); HDL Cholesterol 52 mg/dL (40-60); Sodium 134 mmol/L (136-145); Total Protein 7.7 g/dL (6.4-8.2); Triglyceride 111 mg/dL (<150)
[2021-10-02 18:31] LABS: Hemoglobin A1C 5.8 % (<5.7)
[2021-10-05 13:34] LABS: HIV-1/2 Ag & Ab Screen Negative (Negative)
[2021-10-06 09:40] LABS: Hepatitis C Ab w Rflx HCV PCR Negative (Negative)
== END 2021-10-02 14:15 | disposition home or self-care (01) ==
LOC: LBN 14:14
PROVIDERS: PCP Nurse Practitioner; Visit Provider Nurse Practitioner
DX: E78.5 Hyperlipidemia, unspecified (principal); I10 Essential (primary) hypertension; M85.88 Other specified disorders of bone density and structure, other site; N18.9 Chronic kidney disease, unspecified; Z11.59 Encounter for screening for other viral diseases; E11.9 Type 2 diabetes mellitus without complications
CPT/HCPCS: 80053; 80061; 85027; 86803; 87389; 83036

== ENCOUNTER 2021-10-13 16:26 | Emergency (ER) | payer OTHER, MEDICAID, SELFPAY ==
--- NOTE | 2021-10-13 16:30 | DI.RAD_ITS ---
Exam(s) XR FINGER LT INDEX EXAM: XR FINGER LT INDEX EXAM DATE/TIME: CLINICAL HISTORY: Laceration, R/O FB, FX. TECHNIQUE: 2D digital imaging was performed of the left finger. Three views were obtained. PA/AP, oblique, and lateral views were obtained. COMPARISON: None. FINDINGS: BONES: No acute fracture is present. No bony destructive lesion is seen. JOINTS: No dislocation is present. SOFT TISSUE: Normal. No foreign body. IMPRESSION: No evidence of acute fracture or dislocation. DATA REPOSITORY: RADIATION DOSE DELIVERED:
[2021-10-13 16:41] VITALS: BP 119/82; PULSE 86; RESP 16; TEMP 36.4; O2SAT 97
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
--- NOTE | 2021-10-13 17:18 | DI.VRAD_ITS ---
PROCEDURE INFORMATION: Exam: XR Left Finger(s) Exam date and time: 10/13/2021 5:02 PM Age: 56 years old Clinical indication: Injury or trauma; Other: Cut with a saw; Bleeding/hemorrhage and laceration; Left index finger; Injury date: 10/13/2021; Injury details: PT states he cut his finger with a saw TECHNIQUE: Imaging protocol: XR Left fingers. Views: Minimum 2 views. COMPARISON: No relevant prior studies available. FINDINGS: Bones/joints: Normal. Soft tissues: Unremarkable. No radiopaque foreign body identified. IMPRESSION: No acute findings. Dictated and Authenticated by: Kvng Downing MD. Ordering:LANETTE Taylor MD
[2021-10-13] MEDS: Cephalexin 500 MG CAP PO (18:25)
[2021-10-13] MEDS: Cephalexin 500 MG CAP, 2 CAPS/BTL PO (18:47)
== END 2021-10-13 18:23 | disposition home or self-care (01) ==
PROVIDERS: Emergency Provider Registered Nurse Emergency; PCP Nurse Practitioner
DX: S61.211A Laceration without foreign body of left index finger without damage to nail, initial encounter (principal); W27.0XXA Contact with workbench tool, initial encounter
CPT/HCPCS: 12001; 29130; 99283; 73140

== ENCOUNTER → 2022-02-11 01:25 | Outpatient (CLI) | payer MEDICARE, MEDICAID, SELFPAY ==
--- NOTE | 2022-02-11 08:00 | DI.DEXA_ITS ---
Exam(s) XR DEXA BONE DENSITY W/WO VANNA EXAM: XR DEXA BONE DENSITY W/WO VANNA CLINICAL HISTORY: Dilantin, osteopenia,M85.88,MEDICATION ADVERSE EFFECT,T50.905A,M85.88 TECHNIQUE: COMPARISON: CT CT CHEST WO from 08/29/2018 FINDINGS: DEXA scan was performed according to the usual protocol. Please see the accompanying data sheets. Findings for lumbar spine scanning are T-score -1.0, prior examination of February 2017 showed lumbar T -score -1.4. Left forearm scanning shows T-score 0.5. Prior examination of 2017 showed T-score 0.3. Left hip scanning shows T-score -1.1 with left femoral neck T-score -2.0. Prior examination of 2017 showed left hip T-score -1.0. IMPRESSION: The measurements are consistent with osteopenia according to the WHO criteria. The lateral vertebral scanogram shows mild anterior wedging of what appear to be T11 and T12 vertebral bodies, development al variant versus minimal compression fracture. RADIATION DOSE DELIVERED: Total DLP
== END ==
PROVIDERS: PCP Nurse Practitioner; Visit Provider Nurse Practitioner
DX: M85.88 Other specified disorders of bone density and structure, other site; Z13.820 Encounter for screening for osteoporosis
CPT/HCPCS: 77080

== ENCOUNTER 2022-02-19 14:31 | Emergency (ER) | payer MEDICARE, MEDICAID, SELFPAY ==
[2022-02-19 14:42] VITALS: BP 133/74; PULSE 84; RESP 16; TEMP 36.7; O2SAT 97
--- NOTE | 2022-02-19 15:00 | DI.RAD_ITS ---
Exam(s) XR FOOT LT COMPLETE EXAM: XR FOOT LT COMPLETE CLINICAL HISTORY: Pain, atraumatic. TECHNIQUE: 2D digital imaging was performed. Three views. COMPARISON: CR RIGHT FOOT COMPLETE from 02/21/2015 FINDINGS: BONES: No acute fracture is present. No bony destructive lesion is seen. Small enthesophyte at Achil les insertion. JOINTS: No dislocation present. Mild degenerative changes 1st MTP joint. SOFT TISSUE: Normal. IMPRESSION: Unremarkable radiographs of the left foot. DATA REPOSITORY: RADIATION DOSE DELIVERED:
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
== END 2022-02-19 16:28 | disposition home or self-care (01) ==
PROVIDERS: Emergency Provider Registered Nurse Emergency; PCP Nurse Practitioner
DX: M77.8 Other enthesopathies, not elsewhere classified (principal); Z87.891 Personal history of nicotine dependence
CPT/HCPCS: 99283; 73630

== ENCOUNTER 2022-03-02 15:08 | Outpatient (REF) | payer MEDICARE, MEDICAID, SELFPAY ==
[2022-03-02 20:29] LABS: Hemoglobin A1C 5.6 % (<5.7)
[2022-03-02 21:29] LABS: Vitamin D 25 Total 42.4 ng/mL (30-100)
== END 2022-03-02 15:09 | disposition home or self-care (01) ==
LOC: LBN 15:08
PROVIDERS: PCP Nurse Practitioner; Visit Provider Nurse Practitioner
DX: M85.88 Other specified disorders of bone density and structure, other site (principal); R73.03 Prediabetes
CPT/HCPCS: 82306; 83036

== ENCOUNTER → 2022-04-29 11:20 | Outpatient (BNVA) | payer MEDICARE, MEDICAID, SELFPAY | PROVIDERS: PCP Nurse Practitioner; Referring Provider Nurse Practitioner; Visit Provider Psychiatry & Neurology Neurology | DX: G40.109 Localization-related (focal) (partial) symptomatic epilepsy and epileptic syndromes with simple partial seizures, not intractable, without status epilepticus (principal); R29.898 Other symptoms and signs involving the musculoskeletal system; Z79.52 Long term (current) use of systemic steroids; M79.605 Pain in left leg; I12.9 Hypertensive chronic kidney disease with stage 1 through stage 4 chronic kidney disease, or unspecified chronic kidney disease; N18.9 Chronic kidney disease, unspecified | CPT/HCPCS: 99214 ==

== ENCOUNTER 2022-07-09 14:54 | Outpatient (CLI) | payer MEDICARE, MEDICAID, SELFPAY ==
--- NOTE | 2022-07-09 14:45 | RT.EKG_ITS ---
APPROVED REPORT Exam: Resting ECG Reason for Exam: syncopal episode Patient Location: O HR:67 bpm ECG Measurements Heart Rate 67 AXIS TN 165 P 42 QRSd 85 QRS 40 QT 385 T 54 QTc 407 Conclusion Sinus rhythm...normal P axis, V-rate 50- 99 Normal Electrocardiogram
== END 2022-07-09 14:55 | disposition home or self-care (01) ==
LOC: DI.KIM 14:55
PROVIDERS: PCP Nurse Practitioner; Visit Provider Nurse Practitioner
DX: R55 Syncope and collapse (principal)
CPT/HCPCS: 93010

== ENCOUNTER → 2022-07-13 14:29 | Outpatient (BNVA) | payer MEDICARE, MEDICAID, SELFPAY | PROVIDERS: PCP Nurse Practitioner; Referring Provider Nurse Practitioner; Visit Provider Psychiatry & Neurology Neurology | DX: R25.2 Cramp and spasm (principal); I12.9 Hypertensive chronic kidney disease with stage 1 through stage 4 chronic kidney disease, or unspecified chronic kidney disease; N18.9 Chronic kidney disease, unspecified; G40.109 Localization-related (focal) (partial) symptomatic epilepsy and epileptic syndromes with simple partial seizures, not intractable, without status epilepticus | CPT/HCPCS: 99214 ==

== ENCOUNTER 2022-07-20 02:55 | Outpatient (CLI) | payer MEDICARE, MEDICAID, SELFPAY ==
[2022-07-20 14:34] LABS: HCT 42.9 % (40.0-50.0); HGB 14.8 g/dL (13.5-17.5); MCH 31.6 pg (27.0-33.0); MCHC 34.5 % (32.0-36.0); MCV 92 fL (80-95); MPV 8.7 fL (8.0-11.0); Platelet Count 321 10^3/uL (130-400); RBC 4.69 10^6/uL (4.36-5.78); RDW 13.4 % (11.8-14.1); RDW-SD 45.4 fL; WBC 8.96 10^3/uL (4.4-10.8)
[2022-07-20 15:49] LABS: ALT 30 U/L (16-63); AST 25 U/L (15-37); Albumin 4.2 g/dL (3.4-5.0); Alkaline Phosphatase 130 U/L (46-116); Anion Gap 5.1 mmol/L (3-11); BUN 26 mg/dL (7-18); Bilirubin, Total 0.4 mg/dL (0.2-1.0); CO2 30.9 mmol/L (21.0-32.0); CREATININE 1.8 mg/dL (0.70-1.30); Calcium 9.8 mg/dL (8.5-10.1); Chloride 102 mmol/L (98-107); Estimated GFR 43.63 (mL/min/1.73m2); Glucose 91 mg/dL (74-106); Potassium 3.8 mmol/L (3.5-5.1); Sodium 138 mmol/L (136-145); Total Protein 8.7 g/dL (6.4-8.2)
[2022-07-21 20:31] LABS: Phenytoin, Free 1.2 mcg/mL (1.0 - 2.0)
== END 2022-07-20 02:56 | disposition home or self-care (01) ==
LOC: LBO 02:55
PROVIDERS: Psychiatry & Neurology Neurology; PCP Nurse Practitioner; Visit Provider Nurse Practitioner
DX: G40.109 Localization-related (focal) (partial) symptomatic epilepsy and epileptic syndromes with simple partial seizures, not intractable, without status epilepticus (principal); R55 Syncope and collapse; Z87.441 Personal history of nephrotic syndrome
CPT/HCPCS: 36415; 80053; 80186; 85027

== ENCOUNTER 2022-08-04 14:49 | Outpatient (CLI) | payer MEDICARE, MEDICAID, SELFPAY ==
--- NOTE | 2022-08-04 14:15 | DI.RAD_ITS ---
Exam(s) XR SHOULDER RT COMPLETE 2+V EXAM: XR SHOULDER RT COMPLETE 2+V CLINICAL HISTORY: SHOULDER PAIN. TECHNIQUE: 2D digital imaging was performed of the right shoulder. Two images were obtained. AP an d axillary views were obtained. COMPARISON: None. FINDINGS: BONES: No acute fracture is present. No bony destructive lesion is seen. JOINTS: No dislocation present. SOFT TISSUE: Normal. IMPRESSION: Unremarkable radiographs of the right shoulder. DATA REPOSITORY: RADIATION DOSE DELIVERED:
== END 2022-08-04 14:50 | disposition home or self-care (01) ==
LOC: DIORS 14:50
PROVIDERS: PCP Nurse Practitioner; Referring Provider Nurse Practitioner; Visit Provider Student in an Organized Health Care Education/Training Program
DX: S46.011A Strain of muscle(s) and tendon(s) of the rotator cuff of right shoulder, initial encounter (principal); W18.11XA Fall from or off toilet without subsequent striking against object, initial encounter
CPT/HCPCS: 99203; 99213; 73030

== ENCOUNTER → 2022-08-26 14:19 | Outpatient (BNVA) | payer MEDICARE, MEDICAID, SELFPAY | PROVIDERS: PCP Nurse Practitioner; Referring Provider Nurse Practitioner; Visit Provider Surgery | DX: Z12.11 Encounter for screening for malignant neoplasm of colon (principal) ==

== ENCOUNTER 2022-09-30 01:14 | Outpatient (CLI) | payer MEDICARE, MEDICAID, SELFPAY ==
--- NOTE | 2022-09-30 15:00 | DI.US_ITS ---
APPROVED REPORT EXAM: Comprehensive 2D, Doppler, and color-flow Echocardiogram Patient Location: Out-Patient Leasing Agent: Melva Zazueta RDCS (AE) Indications: Syncope Other Information Study Quality: Adequate Conclusion Normal left ventricular chamber size and wall thickness. Ejection fraction is 58%. Wall motion is n ormal Normal right ventricular size and systolic function Both atria are normal in size There is no structural or hemodynamically significant valvular disease Normal estimated right ventricular systolic pressure, 25 mmHg Mildly dilated ascending aorta Wall motion Left Ventricle The left ventricle is normal size. The left ventricular systolic function is normal. The left ventric ular ejection fraction is within the normal range. There is normal left ventricular wall thickness. T here is normal LV segmental wall motion. There is no ventricular septal defect visualized. LVEF is 58 %. Right Ventricle The right ventricle is normal size. The right ventricular systolic function is normal. The RVSP is 25 .0 mmHg. Atria The left atrium size is normal. The right atrium size is normal. The interatrial septum is intact wit h no evidence for an atrial septal defect. Aortic Valve The aortic valve is normal in structure. Aortic valve is trileaflet. There is no aortic valvular sten osis. Trace aortic regurgitation. Mitral Valve The mitral valve is normal in structure. No evidence of mitral valve stenosis. Trace mitral regurgita tion. Tricuspid Valve The tricuspid valve is normal in structure. There is no tricuspid valve stenosis. Trace tricuspid reg urgitation. Pulmonic Valve The pulmonary valve is normal in structure. There is no pulmonic valvular stenosis. Trace pulmonic re gurgitation. Great Vessels The aortic root is normal in size. The ascending aorta is mildly dilated. Aortic arch is normal in ca liber. The IVC was not clearly visualized. Pericardium Technically limited subcostal imaging. 2D Dimensions IVSD d PLAX 0.92 cm M: 0.6-1.2 LV Vol A2C d MOD 92.6 mL LVPW d PLAX 0.90 cm M: 0.6 - 1.2 LV Vol A4C d MOD 103.3 mL LVID d PLAX 4.53 cm M: 4.2 - 5.8 LA vol/ BSA A2C s A-L 31.7 mL/m2 LVDs 3.20 cm M: 2.5 - 4.0 LA vol/ BSA A4C s A-L 23.0 mL/m2 Ao Root d 3.64 cm M: 3.1 - 3.7 LA Vol/ BSA Biplane s A-L 28.2 mL/m2 RA Area A4C 13.98 cm2 LA Area A4C s MOD 17.84 cm2 RA Vol/ BSA A4C s A-L 17.9 mL/m2 LA Area A2C s MOD 21.90 cm2 Ao Asc Diam d 3.78 cm M: 2.6 - 3.4 LV EF A4C MOD 58.0 % LV EF Teichholz 56.0 % LV EF A2C MOD 60.1 % LVEF (Ward's) 58.64 % M: 52 - 72 LV EF Biplane MOD 58.6 % LV Volume 71.02 mL M: 62 - 150 SV 57.47 mL LV Volume Index 31.84 mL/m2 M: 34 - 74 SV Index 25.81 mL/m2 LV Vol Biplane MOD 98.0 mL FS 29.05 % M-Mode TAPSE 2.20 cm (M/F) >1.7 LV Diastology MV E' medial 0.073 (>0.07 m/s) E/A Ratio 1.0 LV E/e MED 11.25 (<14) MV E Vmax 0.83 (0.4-1.3 m/s) MV E' lateral 0.141 (>0.1 m/s) MV A Vmax 0.85 (0.4-1.3 m/s) LV E/e LAT 5.85 (<14) MV E/A Ratio 0.92 MV E/E' medial 11.25 MV E/E' lateral 5.87 Aortic Valve LVOT Area 3.75 cm2 AoV Area Vmax 3.07 cm2 LVOT Vmax 1.14 m/s AoV Area/ BSA (Vmax) 1.38 cm2/m2 LVOT Mean Patrick. 0.66 m/s JEN Mean Patrick. 2.70 cm2 LVOT Peak Grad 5.2 mmHg JEN Mean Patrick. Index 1.21 cm2/m2 LVOT Mean Grad 2.1 mmHg AR DT 2094 msec LVOT VTI 0.267 m AR PHT 607 msec LVOT Diam s 2.15 cm AoV Vmax 1.39 m/s Velocity Ratio 0.82 AoV Mean Patrick. 0.91 m/s AoV Peak Grad 7.7 mmHg LVOT SV 99.96 mL AoV Mean Grad 3.8 mmHg AoV VTI 0.290 m AoV Area VTI 3.45 cm2 AoV Area/ BSA (VTI) 1.55 cm/m2 Mitral Valve MV DT 209 (160-240 msec) MV PHT 61 msec MV Area PHT 3.63 cm2 MV VTI 0.351 m MV Area VTI 2.85 (4.0-6.0 cm2) Pulmonary Valve PV Vmax 0.94 (0.5-1.5 m/s) RVOT Peak Gr. 0.80 mmHg PV Peak Grad 3.5 mmHg RVOT Mean Gr. 0.40 mmHg PV Mean Grad 2.1 mmHg RVOT VTI 0.092 m PV VTI 0.229 m RVOT Vmax 0.45 m/s Tricuspid Valve TR Peak Grad 22.0 mmHg TR Vmax 2.35 m/s RA Pressure 3.00 mmHg RVSP (TR) 25.0 mmHg
== END 2022-09-30 01:34 ==
PROVIDERS: PCP Nurse Practitioner; Visit Provider Nurse Practitioner
DX: R55 Syncope and collapse (principal)
CPT/HCPCS: 93306

== ENCOUNTER 2022-09-30 01:40 | Outpatient (CLI) | payer MEDICARE, MEDICAID, SELFPAY ==
--- NOTE | 2022-09-30 07:30 | DI.MRI_ITS ---
Exam(s) MR UPPER JOINT RT WO EXAM: MR UPPER JOINT RT WO CLINICAL HISTORY: ? RTC TEAR,rt shoulder pain, [id number]. TECHNIQUE: Multiplanar multisequence MRI was performed. COMPARISON: CR XR SHOULDER RT COMPLETE 2+V from 08/04/2022 FINDINGS: BONES: There is no fracture or contusion pattern. JOINTS: Moderate degenerative changes are seen at the acromioclavicular joint with bony hypertrophy a nd subchondral cysts. The glenohumeral joint is normal. TENDONS: Supraspinatus: Unremarkable. Infraspinatus: There is a focus of hyperintense signal on the articular surface of the infraspinatus tendon at its insertion site suggestive of a small partial tear. Subscapularis: Unremarkable. Teres Minor: Unremarkable. Biceps and [place]: Unremarkable. MUSCLES: Unremarkable. GLENOID LABRUM: Unremarkable on this noncontrast examination. SOFT TISSUES: Unremarkable. LIGAMENTS: Unremarkable. OTHER: Subacromial and subdeltoid bursae are unremarkable. IMPRESSION: 1. Focus of hyperintense signal in the articular surface of the infraspinatus tendon suspicious for s mall partial tear. 2. No evidence of a labral tear on this noncontrast examination. 3. Degenerative changes seen at the acromioclavicular joint. DATA REPOSITORY:
== END 2022-09-30 02:00 ==
LOC: DI 01:40
PROVIDERS: PCP Nurse Practitioner; Visit Provider Student in an Organized Health Care Education/Training Program
DX: M25.511 Pain in right shoulder (principal); M75.101 Unspecified rotator cuff tear or rupture of right shoulder, not specified as traumatic; M25.811 Other specified joint disorders, right shoulder
CPT/HCPCS: 73221

== ENCOUNTER → 2022-11-18 13:54 | Outpatient (BNVA) | payer MEDICARE, MEDICAID, SELFPAY | PROVIDERS: PCP Nurse Practitioner; Referring Provider Nurse Practitioner; Visit Provider Student in an Organized Health Care Education/Training Program | DX: S49.91XD Unspecified injury of right shoulder and upper arm, subsequent encounter; X58.XXXD Exposure to other specified factors, subsequent encounter | CPT/HCPCS: 99213 ==

== ENCOUNTER 2023-03-15 01:55 | Outpatient (CLI) | payer MEDICARE, MEDICAID, SELFPAY ==
[2023-03-15 14:12] LABS: Hemoglobin A1C 5.4 % (<5.7)
[2023-03-15 14:16] LABS: Anion Gap 8.6 mmol/L (3-11); BUN 23 mg/dL (7-18); CO2 28.4 mmol/L (21.0-32.0); CREATININE 1.6 mg/dL (0.70-1.30); Calcium 9.1 mg/dL (8.5-10.1); Calculated LDL 72 mg/dL (<100); Chloride 104 mmol/L (98-107); Cholesterol 153 mg/dL (<200); Estimated GFR 49.94 (mL/min/1.73m2); Glucose 99 mg/dL (74-106); HDL Cholesterol 56 mg/dL (40-60); Potassium 3.3 mmol/L (3.5-5.1); Sodium 141 mmol/L (136-145); Triglyceride 125 mg/dL (<150)
== END 2023-03-15 01:56 | disposition home or self-care (01) ==
LOC: LBO 01:55
PROVIDERS: PCP Nurse Practitioner; Visit Provider Nurse Practitioner
DX: E78.5 Hyperlipidemia, unspecified (principal); R73.03 Prediabetes; N18.9 Chronic kidney disease, unspecified
CPT/HCPCS: 36415; 80048; 80061; 83036

== ENCOUNTER → 2023-05-04 11:13 | Outpatient (BNVA) | payer MEDICARE, MEDICAID, SELFPAY | PROVIDERS: PCP Nurse Practitioner; Referring Provider Nurse Practitioner; Visit Provider Psychiatry & Neurology Neurology | DX: G40.109 Localization-related (focal) (partial) symptomatic epilepsy and epileptic syndromes with simple partial seizures, not intractable, without status epilepticus (principal); M79.605 Pain in left leg; M62.81 Muscle weakness (generalized); I12.9 Hypertensive chronic kidney disease with stage 1 through stage 4 chronic kidney disease, or unspecified chronic kidney disease; N18.9 Chronic kidney disease, unspecified | CPT/HCPCS: 99214 ==

== ENCOUNTER 2023-08-31 02:17 | Emergency (ER) | payer MEDICARE, MEDICAID, SELFPAY ==
[2023-08-31] VITALS (7 sets, daily range): BP systolic 137–160; BP diastolic 86–107; PULSE 69–89; RESP 18; TEMP 36.6; O2SAT 95
--- NOTE | 2023-08-31 02:15 | RT.EKG_ITS ---
APPROVED REPORT Exam: Resting ECG Reason for Exam: vomiting Patient Location: E HR:76 bpm ECG Measurements Heart Rate 76 AXIS IN 167 P 49 QRSd 78 QRS 35 QT 388 T 49 QTc 438 Conclusion Sinus rhythm...normal P axis, V-rate 60- 99 Physician: no stemi
[2023-08-31] MEDS: Ondansetron 4 MG/2 ML VIAL IVP (02:28)
[2023-08-31] MEDS: Lactated Ringers 1,000 ML 1000 ML IV (02:28)
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
[2023-08-31 02:51] LABS: Abs Immature Grans 0.09 10^3/uL (0.0-0.06); Absolute Monocyte Count 1.27 10^3/uL (0.1-0.8); Absolute Neutrophil Count 13.01 10^3/uL (1.2-6.7); Basophils % 0.3; Eosinophils % 4.5; HCT 40.4 % (40.0-50.0); HGB 14.2 g/dL (13.5-17.5); Immature Grans % 0.6; Lymphocytes % 4.4; MCH 31.9 pg (27.0-33.0); MCHC 35.1 % (32.0-36.0); MCV 91 fL (80-95); MPV 9.2 fL (8.0-11.0); Neutrophils % 82.2; Platelet Count 302 10^3/uL (130-400); RBC 4.45 10^6/uL (4.36-5.78); RDW 14.1 % (11.8-14.1); RDW-SD 47.1 fL; WBC 15.83 10^3/uL (4.4-10.8)
[2023-08-31 02:52] LABS: ALT 26 U/L (16-63); AST 21 U/L (15-37); Absolute Basophil Count 0.05 10^3/uL (0.0-0.2); Absolute Eosinophil Count 0.71 10^3/uL (0.0-0.7); Albumin 3.9 g/dL (3.4-5.0); Alkaline Phosphatase 136 U/L (46-116); Anion Gap 11.4 mmol/L (3-11); BUN 27 mg/dL (7-18); Bilirubin, Total 0.4 mg/dL (0.2-1.0); CO2 27.6 mmol/L (21.0-32.0); CREATININE 1.8 mg/dL (0.70-1.30); Calcium 9.2 mg/dL (8.5-10.1); Chloride 104 mmol/L (98-107); Estimated GFR 43.36 (mL/min/1.73m2); Glucose 133 mg/dL (74-106); Lipase 37 U/L (16-77); Potassium 4.2 mmol/L (3.5-5.1); Sodium 143 mmol/L (136-145); Total Protein 8.3 g/dL (6.4-8.2); Troponin I < 50 ng/L (< or =60)
[2023-08-31] MEDS: Normal Saline 500 ML IV (03:26)
== END 2023-08-31 06:35 | disposition home or self-care (01) ==
LOC: ER 06:47
PROVIDERS: Emergency Provider Student in an Organized Health Care Education/Training Program; PCP Nurse Practitioner
DX: R11.2 Nausea with vomiting, unspecified (principal); R19.7 Diarrhea, unspecified; E86.0 Dehydration; I10 Essential (primary) hypertension; E78.5 Hyperlipidemia, unspecified
CPT/HCPCS: 36415; 80053; 83690; 93005; 96361; 96374; 99284; 84484; 85025; 93010; 99283; J2405

== ENCOUNTER 2024-04-10 02:38 | Outpatient (CLI) | payer MEDICARE, MEDICAID, SELFPAY ==
[2024-04-10 14:05] LABS: Hemoglobin A1C 5.2 % (<5.7)
[2024-04-10 14:06] LABS: Abs Immature Grans 0.02 10^3/uL (0.0-0.06); Absolute Basophil Count 0.06 10^3/uL (0.0-0.2); Absolute Eosinophil Count 0.57 10^3/uL (0.0-0.7); Absolute Lymphocyte Count 2.64 10^3/uL (1.2-3.4); Absolute Monocyte Count 0.94 10^3/uL (0.1-0.8); Absolute Neutrophil Count 3.98 10^3/uL (1.2-6.7); Basophils % 0.7 %; Eosinophils % 6.9 %; HCT 38.9 % (40.0-50.0); HGB 13.4 g/dL (13.5-17.5); Immature Grans % 0.2 %; Lymphocytes % 32.2 %; MCH 32.4 pg (27.0-33.0); MCHC 34.4 % (32.0-36.0); MCV 94 fL (80-95); MPV 9.4 fL (8.0-11.0); Monocytes % 11.4 %; Neutrophils % 48.6 %; Platelet Count 255 10^3/uL (130-400); RBC 4.14 10^6/uL (4.36-5.78); RDW 13.6 % (11.8-14.1); RDW-SD 46.7 fL; WBC 8.21 10^3/uL (4.4-10.8)
[2024-04-10 14:26] LABS: ALT 33 U/L (16-63); AST 25 U/L (15-37); Albumin 3.6 g/dL (3.4-5.0); Alkaline Phosphatase 125 U/L (46-116); Anion Gap 9.9 mmol/L (3-11); BUN 26 mg/dL (7-18); Bilirubin, Total 0.29 mg/dL (0.2-1.0); CO2 28.1 mmol/L (21.0-32.0); CREATININE 1.7 mg/dL (0.70-1.30); Calcium 8.9 mg/dL (8.5-10.1); Chloride 104 mmol/L (98-107); Estimated GFR 46.15 (mL/min/1.73m2); Glucose 120 mg/dL (74-106); Potassium 3.8 mmol/L (3.5-5.1); Sodium 142 mmol/L (136-145); Total Protein 7.8 g/dL (6.4-8.2)
== END 2024-04-10 02:39 | disposition home or self-care (01) ==
LOC: LBO 02:38
PROVIDERS: PCP Nurse Practitioner; Referring Provider Nurse Practitioner; Visit Provider Nurse Practitioner
DX: E78.5 Hyperlipidemia, unspecified (principal); I10 Essential (primary) hypertension; R73.01 Impaired fasting glucose; E66.9 Obesity, unspecified
CPT/HCPCS: 36415; 80053; 83036; 85025

== ENCOUNTER → 2024-05-02 13:05 | Outpatient (BNVA) | payer MEDICARE, MEDICAID, SELFPAY | PROVIDERS: PCP Nurse Practitioner; Referring Provider Nurse Practitioner; Visit Provider Psychiatry & Neurology Neurology | DX: M79.605 Pain in left leg (principal); G40.109 Localization-related (focal) (partial) symptomatic epilepsy and epileptic syndromes with simple partial seizures, not intractable, without status epilepticus | CPT/HCPCS: 99214 ==

== ENCOUNTER 2024-08-18 20:24 | Emergency (ER) | payer MEDICARE, MEDICAID, SELFPAY ==
[2024-08-18 20:35] VITALS: BP 146/93; PULSE 81; RESP 20; TEMP 37.1; O2SAT 97
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
[2024-08-18 21:31] VITALS: BP 140/98; PULSE 63; RESP 18; O2SAT 98
--- NOTE | 2024-08-18 21:52 | DI.VRAD_ITS ---
PROCEDURE INFORMATION: Exam: XR Sacrum and Coccyx, 2 or More Views Exam date and time: 08/18/2024 9:16 PM Age: 59 years old Clinical indication: Injury or trauma; Blunt trauma (contusions or hematomas); Injury date: 08/16/24; Fall, tailbone pain TECHNIQUE: Imaging protocol: XR of the sacrum and coccyx, 2 or more views. COMPARISON: CR XR LUMBAR SPINE AP, LAT 08/18/2024 9:15 PM FINDINGS: Bones/joints: Normal. No acute fracture. Soft tissues: Normal. Gastrointestinal tract: Moderate stool throughout the colon and rectum. IMPRESSION: No acute findings. Dictated and Authenticated by: Faina Taylor MD. Orderin Amelia Jang MD
--- NOTE | 2024-08-18 21:56 | DI.VRAD_ITS ---
PROCEDURE INFORMATION: Exam: XR Lumbosacral Spine Exam date and time: 08/18/2024 9:15 PM Age: 59 years old Clinical indication: Injury or trauma; Blunt trauma (contusions or hematomas); Injury date: 08/16/24; Fall, low back pain TECHNIQUE: Imaging protocol: Radiologic exam of the lumbosacral spine. Views: 2 or 3 views. COMPARISON: No relevant prior studies available. FINDINGS: Bones/joints: Normal. No acute fracture. Normal alignment. Soft tissues: Unremarkable. IMPRESSION: No acute findings. Dictated and Authenticated by: Faina Taylor MD. Orderin Amelia Jang MD
[2024-08-18] MEDS: Cyclobenzaprine 10 MG TAB PO (22:06)
[2024-08-18] MEDS: Lidocaine 5% Patch 1 PATCH TP (22:06)
[2024-08-18 22:10] VITALS: BP 139/90; PULSE 74; RESP 20; O2SAT 98
--- NOTE | 2024-08-18 22:21 | DI.RAD_ITS ---
Exam(s) XR SACRUM COCCYX EXAM: XR SACRUM COCCYX CLINICAL HISTORY: fall, tailbone pain. TECHNIQUE: 2D digital imaging was performed. COMPARISON: No exams were available for comparison FINDINGS: 3 views No evidence of sacral nor obvious coccyx fracture. No osseous lesions in the sacrum. Bone density appears normal. Sacroiliac joints normal. IMPRESSION: No acute osseous findings in the sacrum. DATA REPOSITORY: RADIATION DOSE DELIVERED:
--- NOTE | 2024-08-18 22:22 | DI.RAD_ITS ---
Exam(s) XR LUMBAR SPINE AP, LAT EXAM: XR LUMBAR SPINE AP, LAT CLINICAL HISTORY: low back pain. TECHNIQUE: 2D digital imaging was performed. COMPARISON: CR XR DEXA BONE DENSITY W/WO VANNA from 02/11/2022 FINDINGS: 3 views No evidence of acute fracture, listhesis, nor pars defects. No significant disc space narrowing. No osseous lesions. No scoliosis. IMPRESSION: No acute osseous findings in the lumbosacral spinal column. DATA REPOSITORY: RADIATION DOSE DELIVERED:
== END 2024-08-18 22:11 | disposition home or self-care (01) ==
LOC: ER 21:56
PROVIDERS: Emergency Provider Physician Assistant; PCP Nurse Practitioner
DX: M54.50 Low back pain, unspecified (principal); W00.0XXA Fall on same level due to ice and snow, initial encounter; Y92.89 Other specified places as the place of occurrence of the external cause
CPT/HCPCS: 99284; 72100; 72220; 99283

== ENCOUNTER → 2024-11-09 14:32 | Outpatient (BNVA) | payer MEDICARE, MEDICAID, SELFPAY | PROVIDERS: PCP Nurse Practitioner; Referring Provider Nurse Practitioner; Visit Provider Podiatrist | DX: B07.0 Plantar wart (principal); M79.671 Pain in right foot | CPT/HCPCS: 17110 ==

== ENCOUNTER → 2024-11-20 12:40 | Outpatient (BNVA) | payer MEDICARE, MEDICAID, SELFPAY | PROVIDERS: PCP Nurse Practitioner; Referring Provider Nurse Practitioner; Visit Provider Psychiatry & Neurology Neurology | DX: M79.605 Pain in left leg (principal); G40.109 Localization-related (focal) (partial) symptomatic epilepsy and epileptic syndromes with simple partial seizures, not intractable, without status epilepticus; R29.898 Other symptoms and signs involving the musculoskeletal system; M25.531 Pain in right wrist; W19.XXXA Unspecified fall, initial encounter | CPT/HCPCS: 99214 ==

== ENCOUNTER → 2025-01-10 14:21 | Outpatient (BNVA) | payer MEDICARE, MEDICAID, SELFPAY | PROVIDERS: PCP Nurse Practitioner; Referring Provider Nurse Practitioner; Visit Provider Podiatrist | DX: B07.0 Plantar wart (principal); M79.671 Pain in right foot | CPT/HCPCS: 17110 ==

== ENCOUNTER → 2025-02-14 14:03 | Outpatient (BNVA) | payer MEDICARE, MEDICAID, SELFPAY | PROVIDERS: PCP Nurse Practitioner; Referring Provider Nurse Practitioner; Visit Provider Podiatrist | DX: B07.0 Plantar wart (principal); M79.671 Pain in right foot | CPT/HCPCS: 17110 ==

== ENCOUNTER → 2025-02-27 14:26 | Outpatient (BNVA) | payer MEDICARE, MEDICAID, SELFPAY | PROVIDERS: PCP Nurse Practitioner; Referring Provider Nurse Practitioner; Visit Provider Psychiatry & Neurology Neurology | DX: G40.109 Localization-related (focal) (partial) symptomatic epilepsy and epileptic syndromes with simple partial seizures, not intractable, without status epilepticus (principal); M79.605 Pain in left leg; R29.898 Other symptoms and signs involving the musculoskeletal system; I12.9 Hypertensive chronic kidney disease with stage 1 through stage 4 chronic kidney disease, or unspecified chronic kidney disease; N18.9 Chronic kidney disease, unspecified | CPT/HCPCS: 99214 ==

== ENCOUNTER 2025-03-14 03:58 | Outpatient (CLI) | payer MEDICARE, MEDICAID, SELFPAY ==
--- NOTE | 2025-03-14 15:13 | DI.CT_ITS ---
Exam(s) CT HEAD WO EXAM: CT HEAD WO CLINICAL HISTORY: acute L arm weakness in November; ?stroke,R29.898. TECHNIQUE: Imaging Protocol: Axial computed tomography images with coronal and sagittal reformatted images were created and reviewed COMPARISON: CT HEAD WITHOUT CONTRAST from 10/11/2011 FINDINGS: Ventricles and Extra axial spaces: Normal in size and morphology for the patient's age. Variant of patent cavum septum pellucidum. Hemorrhage: None. Cerebral parenchyma: No evidence of acute infarct or mass. Midline shift: None. Brainstem/Cerebellum: Normal. Bones: No skull or facial fractures. Visualized Paranasal sinuses:Mild mucosal thickening of the ethmoid and sphenoid sinuses. Mastoids: Clear. Soft Tissues: Unremarkable. ORBITS: Unremarkable. PITUITARY: Not enlarged. IMPRESSION: No acute intracranial process. RADIATION DOSE DELIVERED: 891.62mGy.cm Total DLP DATA REPOSITORY: All CT scans at this facility are submitted to the National Radiology Data Registry (NRDR) Dose Index Registry (DIR) with the [employer] (A[employer]). RADIATION OPTIMIZATION: All CT scans at this facility use at least one of these dose optimization techniques: automated exposure control; mA and/or kV adjustment per patient size (includes targeted exams where dose is matched to clinical indication); or iterative reconstruction.
== END 2025-03-14 04:18 ==
PROVIDERS: PCP Nurse Practitioner Family; Visit Provider Psychiatry & Neurology Neurology
DX: R29.898 Other symptoms and signs involving the musculoskeletal system (principal)
CPT/HCPCS: 70450

== ENCOUNTER 2025-03-14 15:20 | Outpatient (CLI) | payer MEDICARE, MEDICAID, SELFPAY ==
[2025-03-14 17:20] LABS: ALT 31 U/L (16-63); AST 23 U/L (15-37); Albumin 3.7 g/dL (3.4-5.0); Alkaline Phosphatase 105 U/L (46-116); Anion Gap 4.9 mmol/L (3-11); BUN 19 mg/dL (7-18); Bilirubin, Total 0.2 mg/dL (0.2-1.0); CO2 34.1 mmol/L (21.0-32.0); Calcium 9.1 mg/dL (8.5-10.1); Chloride 104 mmol/L (98-107); Estimated GFR 40.13 (mL/min/1.73m2); Glucose 95 mg/dL (74-106); Potassium 4.3 mmol/L (3.5-5.1); Sodium 143 mmol/L (136-145); Total Protein 7.6 g/dL (6.4-8.2)
[2025-03-16 21:24] LABS: Phenytoin, Free 1.1 mcg/mL (1.0 - 2.0)
== END 2025-03-14 15:21 | disposition home or self-care (01) ==
LOC: LBO 15:21
PROVIDERS: PCP Nurse Practitioner Family; Visit Provider Psychiatry & Neurology Neurology
DX: G40.109 Localization-related (focal) (partial) symptomatic epilepsy and epileptic syndromes with simple partial seizures, not intractable, without status epilepticus (principal)
CPT/HCPCS: 36415; 80053; 80186

== ENCOUNTER → 2025-03-28 13:37 | Outpatient (BNVA) | payer MEDICARE, MEDICAID, SELFPAY | PROVIDERS: PCP Nurse Practitioner Family; Referring Provider Nurse Practitioner Family; Visit Provider Podiatrist | DX: B07.0 Plantar wart (principal); M79.674 Pain in right toe(s); M79.675 Pain in left toe(s); M20.42 Other hammer toe(s) (acquired), left foot | CPT/HCPCS: 17110; 99212 ==

== ENCOUNTER → 2025-05-01 12:46 | Outpatient (BNVA) | payer MEDICARE, MEDICAID, SELFPAY | PROVIDERS: PCP Nurse Practitioner Family; Visit Provider Psychiatry & Neurology Neurology | DX: G40.109 Localization-related (focal) (partial) symptomatic epilepsy and epileptic syndromes with simple partial seizures, not intractable, without status epilepticus (principal); M79.605 Pain in left leg; M25.512 Pain in left shoulder; R29.898 Other symptoms and signs involving the musculoskeletal system; I12.9 Hypertensive chronic kidney disease with stage 1 through stage 4 chronic kidney disease, or unspecified chronic kidney disease; N18.9 Chronic kidney disease, unspecified | CPT/HCPCS: 99214 ==

== ENCOUNTER → 2025-05-09 14:11 | Outpatient (BNVA) | payer MEDICARE, MEDICAID, SELFPAY | PROVIDERS: PCP Nurse Practitioner Family; Referring Provider Nurse Practitioner Family; Visit Provider Podiatrist | DX: B07.0 Plantar wart (principal); M79.671 Pain in right foot; M20.42 Other hammer toe(s) (acquired), left foot | CPT/HCPCS: 17110 ==

== ENCOUNTER → 2025-05-23 13:28 | Outpatient (CLI) | payer MEDICARE, MEDICAID, SELFPAY ==
--- NOTE | 2025-05-23 13:15 | DI.RAD_ITS ---
Exam(s) XR RIBS LT W PA LAT CHEST CLINICAL HISTORY: fall- rule out fx, RIB PAIN ON LEFT SIDE , OTHER CHEST PAIN R07.89. COMPARISON: CR XR CHEST 2V PA LATERAL from 04/27/2019 TECHNIQUE:: PA and lateral views of the chest and four views of the right ribs were performed. FINDINGS: LUNGS:Clear. No pleural abnormality seen. HEART: Normal size. MEDIASTINUM: Normal. BONES: No displaced rib fracture is seen. No bony destructive lesion is seen. Visualized portions of the abdomen: Cholecystectomy clips. Large quantity of fecal material noted. IMPRESSION: 1. Unremarkable radiographic appearance of the right ribs. 2. No acute pulmonary findings.
== END ==
LOC: DI 13:29
PROVIDERS: PCP Nurse Practitioner Family; Visit Provider Nurse Practitioner Family
DX: R07.89 Other chest pain (principal)
CPT/HCPCS: 71046; 71100